=== PATIENT | female | born 1970 | race Caucasian/White ===

== ENCOUNTER 2021-03-18 13:43 | Outpatient (REF) | payer OTHER, SELFPAY ==
--- NOTE | ~2021-03-18 | XR_ITS ---
EXAMINATION: XR LUMBOSACRAL SPINE CLINICAL INFORMATION: Back pain COMPARISON: None TECHNIQUE: Three views of the lumbosacral spine. FINDINGS: Bone alignment is normal. No fracture or dislocation is seen. There is mild degenerative disc disease at L5-S1. There is lower lumbar spine facet arthritis. Paraspinal soft tissues are unremarkable. XR/XR lumbar spine 2-3V IMPRESSION: Degenerative disc disease at L5-S1 and lower lumbar spine facet arthritis.
== END 2021-03-18 13:44 | disposition home or self-care (01) ==
LOC: HO.XRAY 13:43
PROVIDERS: PCP Internal Medicine; Visit Provider Internal Medicine
DX: M54.9 Dorsalgia, unspecified (principal)
CPT/HCPCS: 72100

== ENCOUNTER 2021-03-27 10:03 | Emergency (ER) | payer OTHER, SELFPAY ==
[2021-03-27 10:12] VITALS: BP 138/92; PULSE 92; RESP 18; TEMP 36.9; O2SAT 98; BMI 26.6
--- NOTE | 2021-03-27 10:37 | ED_ITS ---
HPI - General Adult General Chief complaint: Back Pain/Injury <JAZZMINE Ellis - Last Filed: 03/27/21 17:14> Stated complaint: low back pain <JAZZMINE Ellis - Last Filed: 03/27/21 17:14> Time Seen by Provider: 03/27/21 10:14 <JAZZMINE Ellis - Last Filed: 03/27/21 17:14> Source: patient <JAZZMINE Ellis - Last Filed: 03/27/21 17:14> Mode of arrival: ambulatory <JAZZMINE Ellis - Last Filed: 03/27/21 17:14> Limitations: no limitations <JAZZMINE Ellis Last Filed: 03/27/21 17:14> History of Present Illness HPI narrative: 50-year-old female presents to the ED for low back pain for the past 2 weeks days. Patient states after 2 hour long dry she had pain in the lower back area that is worse on movement. Patient says she was seen by primary care provider who discharged with steroids and muscle relaxer but no pain medication. Since she had x-ray and she called the office yesterday and they form her x-ray showed arthritis and lower spine. Patient denies any recent trauma, urinary/bowel incontinence, fever, chills, nausea, flank pain, dysuria, hematuria, or vomiting. Patient denies any history of HIV, hepatitis-C, other immunocompromised diseases or IV drug use. <JAZZMINE Ellis - Last Filed: 03/27/21 17:14> Related Data Home medications: Previous Rx's Medication Instructions Recorded gabapentin 100 mg capsule 100 mg PO TID 7 Days #21 cap 03/27/21 ketorolac 10 mg tablet 10 mg PO QID PRN 5 Days #20 tab 03/27/21 lidocaine 4 % topical patch 1 patch TOPICAL DAILY PRN #10 ea 03/27/21 tramadol 50 mg tablet 50 mg PO Q8H PRN #9 tab 03/27/21 <JAZZMINE Ellis - Last Filed: 03/27/21 17:14> Allergies/adverse reactions: Allergies Allergy/AdvReac Type Severity Reaction Status Date / Time penicillin V Allergy Unknown Unverified 12/07/17 00:00 Penicillins [PCN] Allergy Unknown ANAPHYLAXIS Unverified 01/19/20 16:12 Sulfa (Sulfonamide Allergy Unknown ANAPHYLAXIS Unverified 01/19/20 16:12 Antibiotics) [SULFA (SULFONAMIDE ANTIBIOTICS)] <JAZZMINE Ellis Last Filed: 03/27/21 17:14> Review of Systems Review of Systems: Yes all other systems are reviewed and are negative <JAZZMINE Ellis Last Filed: 03/27/21 17:14> Constitutional: Constitutional: Reports as per HPI and Reports no additional constitutional complaints <JAZZMINE Ellis Last Filed: 03/27/21 17:14> Eyes: Eyes: Reports as per HPI and Reports no additional eye complaints <JAZZMINE Ellis Last Filed: 03/27/21 17:14> ENT: Reports system reviewed and no additional complaints, except as documented and Reports as per HPI <JAZZMINE Ellis Last Filed: 03/27/21 17:14> Cardiovascular: Cardiovascular: Reports as per HPI and Reports no additional cardiovascular complaints <JAZZMINE Ellis Last Filed: 03/27/21 17:14> Respiratory: Respiratory: Reports as per HPI and Reports no additional respiratory complaints <JAZZMINE Ellis Last Filed: 03/27/21 17:14> Gastrointestinal: Gastrointestinal: Reports as per HPI and Reports no additional gastrointestinal complaints <JAZZMINE Ellis Last Filed: 03/27/21 17:14> Genitourinary: Genitourinary: Reports no additional female genitourinary complaints and Reports as per HPI <JAZZMINE Ellis Last Filed: 03/27/21 17:14> Musculoskeletal: Musculoskeletal: Reports no additional musculoskeletal complaints, Reports as per HPI and Reports back pain <JAZZMINE Ellis Last Filed: 03/27/21 17:14> Neurologic: Reports system reviewed and no additional complaints, except as documented and Reports as per HPI <JAZZMINE Ellis Last Filed: 03/27/21 17:14> Psychiatric: Psychiatric: Reports no additional psychiatric complaints and Reports as per HPI <JAZZMINE Ellis Last Filed: 03/27/21 17:14> Endocrine: Endocrine: Reports no additional endocrine complaints and Reports as per HPI <JAZZMINE Ellis Last Filed: 03/27/21 17:14> PMFSH Past Medical History Medical History: Medical History (Updated 03/27/21 @ 12:29 by JAZZMINE Ellis) No known health problems <JAZZMINE Ellis - Last Filed: 03/27/21 17:14> Social History Social History: Social History Advance Directives: No Patient : No <JAZZMINE Ellis - Last Filed: 03/27/21 17:14> Physical Exam Vital Signs: Vital Signs: Last Vital Signs Temp 98.4 F 03/27/21 10:12 Pulse 92 03/27/21 10:12 Resp 18 03/27/21 10:12 BP 138/92 H 03/27/21 10:12 Pulse Ox 98 03/27/21 10:12 Body Mass Index 26.6 <JAZZMINE Ellis - Last Filed: 03/27/21 17:14> Vital Signs: Last Vital Signs Temp 98.4 F 03/27/21 10:12 Pulse 92 03/27/21 10:12 Resp 18 03/27/21 10:12 BP 138/92 H 03/27/21 10:12 Pulse Ox 98 03/27/21 10:12 Body Mass Index 26.6 <Rashawn Yadav MD - Last Filed: 03/27/21 12:08> Const: General: cooperative, healthy appearing, well developed, alert, awake and acute distress (back pain) <JAZZMINE Ellis - Last Filed: 03/27/21 17:14> Orientation/consciousness: patient oriented x3 <JAZZMINE Ellis - Last Filed: 03/27/21 17:14> HENMT: Head: Yes normal to inspection and Yes No palpable skull fracture present <JAZZMINE Ellis - Last Filed: 03/27/21 17:14> Ears: hearing grossly normal bilaterally <JAZZMINE Ellis - Last Filed: 03/27/21 17:14> Eyes: General: appearance normal, both eyes and all related structures <JAZZMINE Ellis - Last Filed: 03/27/21 17:14> Neck: Neck: Yes normal visual inspection, Yes full ROM, Yes no lymphadenopathy, Yes no meningeal signs, Yes trachea midline, Yes supple, No anterior neck swelling and No tender <JAZZMINE Ellis - Last Filed: 03/27/21 17:14> Chest: Chest palpation & inspection: normal inspection of the chest and normal palpation of entire chest wall <Shaka Barrera, PA Last Filed: 03/27/21 17:14> Resp: Effort & Inspection: normal respiratory effort and able to speak in complete sentences <Shaka Barrera, PA Last Filed: 03/27/21 17:14> Auscultation: clear to auscultation bilaterally <JAZZMINE Ellis Last Filed: 03/27/21 17:14> Cardio: Jugular venous distension: no JVD <JAZZMINE Ellis Last Filed: 03/27/21 17:14> Heart sounds: S1 normal heart sound present and S2 normal heart sound present <JAZZMINE Ellis Last Filed: 03/27/21 17:14> GI: Inspection: Yes normal to inspection and No abdominal wall ecchymosis <JAZZMINE Ellis Last Filed: 03/27/21 17:14> Palpation (GI): Soft to palpation, not firm, nontender, no guarding and not rigid <Shaka Rust [facility] Last Filed: 03/27/21 17:14> : General: No CVA tenderness and Yes no CVA tenderness <Shaka Barrera, PA Last Filed: 03/27/21 17:14> Back/Spine/Pelvis: Back: no CVA tenderness, No CVA tenderness and back tenderness (Sacral coccyx/lumbar) <Shaka Barrera, PA Last Filed: 03/27/21 17:14> Skin: General skin exam: no rashes or lesions noted and elasticity normal <Shaka Barrera, PA Last Filed: 03/27/21 17:14> Neuro: General: patient oriented x3, gait normal, no meningeal signs and CN's II-XI intact bilaterally <Shaka Barrera, PA Last Filed: 03/27/21 17:14> Cranial nerves: Yes CN's II-XII intact bilaterally <JAZZMINE Ellis Last Filed: 03/27/21 17:14> Extrem: General: Yes normal to inspection and Yes full ROM <JAZZMINE Ellis Last Filed: 03/27/21 17:14> Psych: Appearance: grossly normal, well kempt and not disheveled <JAZZMINE Ellis - Last Filed: 03/27/21 17:14> Course Course Course Narrative: Patient had x-ray last week and shows arthritis. No need for repeat x-ray patient denies any trauma. Not suspecting cord compression or epidural abscess. Patient denies any history of IV drug use, hepatitis, HIV, or any urinary/bowel incontinence. <JAZZMINE Ellis - Last Filed: 03/27/21 17:14> Reevaluation(s) Reevaluation #1: discussed with JAZZMINE Rust and agree with plan, can add gabapentin if necessary <Rashawn Ydaav MD - Last Filed: 03/27/21 12:08> Time: 12:08 <Rashawn Yadav MD - Last Filed: 03/27/21 12:08> Reevaluation #2: Will discharge with gabapentin, Toradol, and tramadol. Patient finishing Flexeril and steroids prescription prescribed by her PCP. Presently no indication for MRI. Patient able to walk on her own. Inspection negative for any pilondal abscess or ecchymosis. Patient states her back pain improved with meds. Patient informed to follow-up with primary care provider for MRI if pain does not improve. <JAZZMINE Ellis - Last Filed: 03/27/21 17:14> Time: 16:26 <JAZZMINE Ellis - Last Filed: 03/27/21 17:14> Medical Decision Making MDM Narrative Medical decision making narrative: Lumbar radiculopathy <JAZZMINE Ellis - Last Filed: 03/27/21 17:14> Discharge Plan Discharge Clinical Impression: Lumbar radiculopathy <JAZZMINE Ellis - Last Filed: 03/27/21 17:14> Patient Disposition: Home, Self-Care <JAZZMINE Ellis - Last Filed: 03/27/21 17:14> Instructions: Lumbar Radiculopathy (ED) <JAZZMINE Ellis - Last Filed: 03/27/21 17:14> Additional Instructions: Return to the ED immediately for any urinary/bowel incontinence, dysuria, hematuria, flank pain, fever, chills, nausea, vomiting, paralysis of lower extremity, severe numbness of lower extremity, abdominal pain, vaginal bleeding, or any other concerning symptoms. If symptoms are not improved he will need MRI by PCP.. <JAZZMINE Ellis - Last Filed: 03/27/21 17:14> Prescriptions: New tramadol 50 mg tablet 50 mg PO Q8H PRN (Reason: pain) Qty: 9 RF: 0 gabapentin 100 mg capsule 100 mg PO TID 7 Days Qty: 21 RF: 0 lidocaine 4 % adhesive patch,medicated 1 patch topical DAILY PRN (Reason: pain) Qty: 10 RF: 0 ketorolac 10 mg tablet 10 mg PO QID PRN (Reason: pain) 5 Days Qty: 20 RF: 0 <JAZZMINE Ellis - Last Filed: 03/27/21 17:14> Stand Alone Forms: Work/School Release <JAZZMINE Ellis - Last Filed: 03/27/21 17:14> Interventions: ED Discharge Assessment Last Done: 03/27/21 13:29 <JAZZMINE Ellis - Last Filed: 03/27/21 17:14> Discharge Date/Time: 03/27/21 13:34 <JAZZMINE Ellis - Last Filed: 03/27/21 17:14> Print Language: [place] <JAZZMINE Ellis - Last Filed: 03/27/21 17:14>
[2021-03-27] MEDS: oxyCODONE HCl Immed Release 5 MG TABLET PO (10:49)
[2021-03-27] MEDS: Ondansetron ODT 4 MG TAB.RAPDIS TRANSLINGU (10:49)
[2021-03-27] MEDS: Ketorolac Tromethamine 60 MG/2 ML VIAL IM (10:51)
[2021-03-27] MEDS: diazePAM 5 MG TABLET PO (12:36)
== END 2021-03-27 13:34 | disposition home or self-care (01) ==
PROVIDERS: Emergency Provider Emergency Medicine; PCP Internal Medicine
DX: M54.16 Radiculopathy, lumbar region (principal); Z79.899 Other long term (current) drug therapy
CPT/HCPCS: 96372; 99284; J1885

== ENCOUNTER 2021-11-10 15:37 | Emergency (ER) | payer OTHER, SELFPAY ==
[2021-11-10 15:38] VITALS: BMI 26.9
[2021-11-10 15:44] VITALS: BP 156/87; PULSE 76; RESP 16; TEMP 36.8; O2SAT 98
--- NOTE | 2021-11-10 16:21 | ED.EAR ---
HPI - Ear Problem General Chief complaint: Ear Problems Stated complaint: Bilateral Ear Pain Time Seen by Provider: 11/10/21 16:12 Source: patient Mode of arrival: ambulatory Limitations: no limitations History of Present Illness HPI Narrative: 50-year-old female who has a past medical history of recurrent otitis externa infections requiring Cipro dex drops, p.o. Cipro and ear palomo last had an infection 6 months ago presenting to the ED with complaints of worsening right-sided ear pain reporting that she believes she might need a ear wick and worsening left-sided ear pain although she does not believe she needs a ear wick to that side. She reports that she is taking the Ciprodex drops and is not providing no symptomatic relief and normally she needs Cipro p.o. in an ear wick that is why she is here today. She denies any recent swimming, ear drainage, fevers, trouble swallowing or breathing, cough, nasal congestion/rhinorrhea, rashes, recent falls or trauma or any other symptoms complaints or concerns at this time. MD Complaint: ear pain Location: bilateral Duration: constant Severity: moderate Relieving factors: nothing Exacerbating factors: palpation Discharge from ear: no Associated symptoms ear: external ear tenderness and ear swelling Treatment prior to arrival: eardrops Related Data Previous Rx's Medication Instructions Recorded gabapentin 100 mg capsule 100 mg PO TID 7 days #21 caps 03/27/21 ketorolac 10 mg tablet 10 mg PO QID PRN pain 5 days #20 03/27/21 tabs lidocaine 4 % topical patch 1 patch topical DAILY PRN pain #10 03/27/21 ea tramadol 50 mg tablet 50 mg PO Q8H PRN pain #9 tabs 03/27/21 ciprofloxacin 0.3 %-dexamethasone 4 drp otic (ears) BID Otitis 11/10/21 0.1 % ear drops,suspension externa 7 days #7.5 mL (Ciprodex) ciprofloxacin HCl 500 mg tablet 500 mg PO BID Otitis externa 14 11/10/21 (Cipro) days #28 tabs Allergies Allergy/AdvReac Type Severity Reaction Status Date / Time penicillin V Allergy Unknown Unverified 12/07/17 00:00 Penicillins [PCN] Allergy Unknown ANAPHYLAXIS Unverified 01/19/20 16:12 Sulfa (Sulfonamide Allergy Unknown ANAPHYLAXIS Unverified 09/17/20 16:12 Antibiotics) [SULFA (SULFONAMIDE ANTIBIOTICS)] Review of Systems Review of Systems: Constitutional : No Weight loss, No Fever, No Chills, No Night Sweats, No Fatigue, No Malaise ENT/Mouth : + bilateral ear pain, No Hearing loss, No Nasal Congestion, No Sinus Pain, No Hoarseness, No sore throat, No Rhinorrhea, No Swallowing Difficulty Eyes: No Eye Pain, No Swelling, No Redness, No Foreign Body, No Discharge, No Vision Changes Cardiovascular : No Chest Pain, No SOB, No Dyspnea on Exertion, No Orthopnea, No Edema, No Palpitations Respiratory : No Cough, No Sputum, No Wheezing, No Smoke Exposure, No Dyspnea Gastrointestinal : No Nausea, No Vomiting, No Diarrhea, No Constipation, No abdominal Pain, No Hematochezia, No Melena Genitourinary : no irregular bleeding, No Dysuria, No Urinary Frequency, No Hematuria, No Urinary Incontinence, No Urgency, No Flank Pain, No Urinary Flow Changes, No Hesitancy Musculoskeletal : No joint pain, No Myalgias, No Joint Swelling Skin : No Skin Lesions, No rash Neuro : No Weakness, No Numbness, No Paresthesias, No Loss of Consciousness, No Dizziness, No Headache Psych : No Anxiety/Panic, No Depression, No SI/HI/AH/VH, No Social Issues, Heme/Lymph: No Bruising, No Bleeding,No Lymphadenopathy Endocrine : No Polyuria, No Polydipsia, No Temperature Intolerance Yes all other systems are reviewed and are negative [facility] Past Medical History Attestation statement: The following information was validated with the patient. Source: old records reviewed and nursing notes reviewed Medical History No known health problems Social History Social History Advance Directives: No Advance Directives Information Provided: No Physical Exam Vital Signs: Vital Signs: Last Vital Signs Temp 98.2 F 11/10/21 15:44 Pulse 76 11/10/21 15:44 Resp 16 11/10/21 15:44 BP 156/87 H 11/10/21 15:44 Pulse Ox 98 11/10/21 15:44 O2 Del Method 11/10/21 15:44 BMI result Body Mass Index 26.9 vital signs have been reviewed as normal and appeared to be correct. Blood pressure 156/87. Heart rate normal. Respiration rate normal. Temperature normal. Oxygen saturation normal. Appearance: Alert. Oriented X3. No acute distress. Head: Normal external exam. Normocephalic. Atraumatic. Eyes: PERRLA. EOMI. Conjunctiva and sclera normal. Eyelids normal. ENT: Left-sided external ear canal with palpation of the pinna and tragus patient has tenderness and mild edematous to the external ear canal no drainage noted. Tympanic membrane is intact no erythema to tympanic membrane. Right-sided external ear canal completely close unable to visualize the tympanic membrane. Therefore ear wick placed. Patient tolerated procedure well. No complications. No purulent drainage from bilateral ears. Pharynx normal. Uvula midline. Moist mucous membranes. No lesions/ulcerations or masses noted on the tongue. Normal voice. No trismus noted. No drooling noted. No muffled voice noted. Neck: Normal inspection. Neck supple. FROM. No adenopathy. No meningeal signs. No neck mass noted. CVS: Normal heart rate and rhythm. Heart sound normal. Pulses normal throughout. No murmurs/rales/gallops. Respiratory: No respiratory distress. Painless inspiration. Breath sounds normal. No wheezes/rales/rhonchi noted. Chest nontender. No accessory muscle usage noted or decreased air movement noted. Back: Full range of motion noted. Skin: Skin warm and dry. Normal skin color. Normal skin turgor. No rashes/lesions/lacerations noted. Extremities: Extremities exhibit normal range of motion and nontender. Neuro: Oriented X 3. No motor deficit. No sensory deficit. Reflexes normal. Normal steady gait. No focal neuro deficits noted. CN's II-XII intact bilaterally? Vascular: + radial pulses/+ 2 distal pedal pulses/+2 dorsalis pedis b/l. Normal cap refill. No cyanosis noted to upper extremity nails and lower extremity toes nails. Course Course Course Narrative: Patient with bilateral otitis externa worse on the right requiring ear wick. Patient tolerated procedure well. No complications. Tympanic membrane to the left side is intact not perforated. Not consistent with mastoiditis. No tenderness over the mastoid. No meningeal signs noted. Therefore at this time will DC home with Ciprodex drops and Cipro p.o. as patient reports this is what usually works for her and instructions to follow-up with her PCP/ear nose and throat doctor. Patient understands agrees with this plan. MDM - Ear Medical Records Attestation: I reviewed the patient's medical records. Discharge Plan Discharge Clinical Impression: Otitis externa Patient Disposition: Home, Self-Care Instructions: Otitis Externa (ED) Prescriptions: New ciprofloxacin-dexamethasone [Ciprodex] 0.3-0.1 % drops,suspension 4 drp otic (ears) BID 7 Days Qty: 7.5 0RF ciprofloxacin HCl [Cipro] 500 mg tablet 500 mg PO BID 14 Days Qty: 28 0RF No Action tramadol 50 mg tablet 50 mg PO Q8H PRN (Reason: pain) Qty: 9 0RF gabapentin 100 mg capsule 100 mg PO TID 7 Days Qty: 21 0RF lidocaine 4 % adhesive patch,medicated 1 patch topical DAILY PRN (Reason: pain) Qty: 10 0RF ketorolac 10 mg tablet 10 mg PO QID PRN (Reason: pain) 5 Days Qty: 20 0RF Rx Instructions: Patient received 60mg Toradol IM in the ED. Referrals: Aleah Crane MD [Primary Care Provider] - 2 days
== END 2021-11-10 16:34 | disposition home or self-care (01) ==
PROVIDERS: Emergency Provider Emergency Medicine; PCP Internal Medicine
DX: H60.93 Unspecified otitis externa, bilateral (principal)
CPT/HCPCS: 99283

== ENCOUNTER 2023-06-03 17:35 | Emergency (ER) | payer OTHER, SELFPAY ==
--- NOTE | ~2023-06-03 | CT_ITS ---
EXAMINATION: CT HEAD WITHOUT CONTRAST CLINICAL INFORMATION: Headache x1 month. COMPARISON: No relevant prior imaging. TECHNIQUE: Contiguous axial imaging was performed from the skull base to vertex without intravenous administration of contrast. This CT examination was performed using dose optimization techniques as appropriate, variously including the following: *Automated exposure control *Adjustment of mA and/or kV according to patient size (this includes techniques or standardized protocols for targeted exams where dose is matched to indication/reason for exam; i.e. extremities or head) *Use of iterative reconstruction technique DLP: 590 mGy-cm FINDINGS: There is no acute intracranial hemorrhage or abnormal extra-axial collection. No intracranial mass effect or midline shift. Lateral and third ventricles are normal. No hydrocephalus. Rojas-white matter differentiation is preserved and there is no evidence of acute territorial infarct. The calvarium and skull base are intact. Mastoid air cells and middle ear cavities are well aerated. No active paranasal sinus disease. CT/CT head/brain wo IV con IMPRESSION: Normal CT scan of the head.
[2023-06-03 18:27] VITALS: BP 170/84; PULSE 80; RESP 16; TEMP 36.3; O2SAT 98; BMI 26.6
--- NOTE | 2023-06-03 18:31 | ECG_ITS ---
Test Reason : PALPITATIONS Blood Pressure : / mmHG Vent. Rate : 063 BPM Atrial Rate : 063 BPM P-R Int : 178 ms QRS Dur : 076 ms QT Int : 402 ms P-R-T Axes : 036 -08 030 degrees QTc Int : 411 ms Normal sinus rhythm Cannot rule out Anteroseptal infarct (cited on or before 02-JUL-2016) Abnormal ECG When compared with ECG of 02-JUL-2016 15:35, No significant change was found Referred By: Shaka Rust Electronically Signed By:STORM MCCRAY MD
--- NOTE | 2023-06-03 18:34 | ED_ITS ---
HPI - General Adult General Chief complaint: Arrhythmia/Palpitations Stated complaint: migraine, bp problem, hx of heart problem History of Present Illness HPI narrative: LEft without completiont of treatment Related Data Previous Rx's Medication Instructions Recorded gabapentin 100 mg capsule 100 mg PO TID 7 days #21 caps 03/27/21 ketorolac 10 mg tablet 10 mg PO QID PRN pain 5 days #20 03/27/21 tabs lidocaine 4 % topical patch 1 patch topical DAILY PRN pain #10 03/27/21 ea tramadol 50 mg tablet 50 mg PO Q8H PRN pain #9 tabs 03/27/21 ciprofloxacin 0.3 %-dexamethasone 4 drp otic (ears) BID Otitis 11/10/21 0.1 % ear drops,suspension externa 7 days #7.5 mL (Ciprodex) ciprofloxacin HCl 500 mg tablet 500 mg PO BID Otitis externa 14 11/10/21 (Cipro) days #28 tabs Allergies Allergy/AdvReac Type Severity Reaction Status Date / Time penicillin V Allergy Unknown Anaphylaxis Verified 06/03/23 20:50 Penicillins [PCN] Allergy Unknown ANAPHYLAXIS Verified 06/03/23 20:50 Sulfa (Sulfonamide Allergy Unknown ANAPHYLAXIS Verified 06/03/23 20:50 Antibiotics) [SULFA (SULFONAMIDE ANTIBIOTICS)] [facility] Past Medical History Medical History No known health problems Social History Social History Advance Directives: No Advance Directives Information Provided: No Physical Exam ED Vital Signs: Vital Signs - 24 hr 06/03/23 18:27 06/03/23 20:56 Temperature 97.4 F 97.5 F Pulse Rate 80 58 Respiratory Rate 16 16 Blood Pressure 170/84 H 140/93 H Pulse Oximetry 98 99 Oxygen Delivery Method Room Air Room Air BMI result Body Mass Index 26.6 Course Course Course Narrative: RME: 52 neyda casarez presents to the ED for one month of heart palpitations and migraine for one moth. Patietn states no shortness of breath or stroke symptoms. labs and EKG ordered. head CT scan ordered Medications Administered Discontinued Medications Generic Name Dose Route Start Last Admin Trade Name Freq PRN Reason Stop Dose Admin Ibuprofen 800 mg 06/03/23 20:47 06/03/23 20:54 Ibuprofen 800 Mg Tablet PO 06/03/23 20:48 800 mg ONCE ONE Administration Metoclopramide HCl 10 mg 06/03/23 20:50 06/03/23 20:54 Metoclopramide Hcl 10 Mg Tablet PO 06/03/23 20:51 10 mg ONCE ONE Administration Medical Decision Making Lab Data 06/03/23 18:55 06/03/23 18:55 Labs: Lab Results 06/03/23 06/03/23 Range/Units 18:55 22:10 WBC 8.1 (4.8-10.8) X10*3/uL RBC 4.96 (4.20-5.50) X10*6/uL Hgb 14.8 (12.0-16.0) g/dl Hct 41.4 (37.0-47.0) % MCV 83.5 (80.0-98.0) fL MCH 29.8 (27.0-33.0) pg MCHC 35.7 H (31.0-35.0) g/dl RDW 11.9 (11.0-16.0) % Plt Count 221 (160-400) X10*3/uL MPV 9.7 (9.4-12.3) fL Immature Gran % (Auto) 0.4 (0.0-0.4) % Neut % (Auto) 74.1 H (45-73) % Lymph % (Auto) 16.5 L (20-40) % [place] % (Auto) 7.3 (2-11) % Eos % (Auto) 1.1 (0-4) % Baso % (Auto) 0.6 (0-2) % Lymph # (Auto) 1.3 (1.2-4.9) X10*3/uL [place] # (Auto) 0.6 (0.1-1.2) X10*3/uL Eos # (Auto) 0.1 (0.0-0.4) X10*3/uL Baso # (Auto) 0.1 (0.0-0.2) X10*3/uL Abs Immat Gran (auto) 0.03 (0.00-0.03) X10*3/uL Absolute Neuts (auto) 6.0 (2.0-8.3) x10*3/uL Absolute Nucleated RBC 0.000 (0.0-0.012) X10*3/uL Nucleated RBC % (auto) 0.0 (0.0-0.2) /100WBC PT 11.1 (11.1-13.3) SEC INR 0.9 (0.9-1.1) APTT 32.8 (26.0-36.8) SEC Sodium 140 (135-145) mmol/L Potassium 3.2 L (3.3-5.1) mmol/L Chloride 104 (96-108) mmol/L Carbon Dioxide 29 (22-29) mmol/L Anion Gap 10 L (12-20) BUN 10 (9-16) mg/dL Creatinine 0.77 (0.5-1.4) mg/dL Estim Creat Clear Calc 91.5 Estimated GFR > 60 Random Glucose 84 (60-115) mg/dL Calcium 10.0 (8.4-10.2) mg/dL Total Bilirubin 0.4 (0.0-1.0) mg/dL AST 22 (5-31) U/L ALT 29 (0-31) U/L Alkaline Phosphatase 71 (39-117) U/L Troponin I High Sens < 2.7 < 2.7 (<3.5-17.0) ng/L Total Protein 7.3 (6.5-8.0) g/dL Albumin 4.7 (3.5-5.0) g/dL TSH 1.56 (0.32-4.0) uIU/mL Discharge Plan Discharge Clinical Impression: Palpitations, Migraine Patient Disposition: Left W/O Completing Treatment Prescriptions: No Action tramadol 50 mg tablet 50 mg PO Q8H PRN (Reason: pain) Qty: 9 0RF gabapentin 100 mg capsule 100 mg PO TID 7 Days Qty: 21 0RF lidocaine 4 % adhesive patch,medicated 1 patch topical DAILY PRN (Reason: pain) Qty: 10 0RF ketorolac 10 mg tablet 10 mg PO QID PRN (Reason: pain) 5 Days Qty: 20 0RF Rx Instructions: Patient received 60mg Toradol IM in the ED. ciprofloxacin-dexamethasone [Ciprodex] 0.3-0.1 % drops,suspension 4 drp otic (ears) BID 7 Days Qty: 7.5 0RF ciprofloxacin HCl [Cipro] 500 mg tablet 500 mg PO BID 14 Days Qty: 28 0RF Discharge Date/Time: 06/04/23 00:02
[2023-06-03 19:01] LABS: MANUAL DIFF FLAG NO
[2023-06-03 19:02] LABS: Basophils Absolute Auto 0.1 X10*3/uL (0.0-0.2); Basophils Percent Auto 0.6 % (0-2); Eosinophils Absolute Auto 0.1 X10*3/uL (0.0-0.4); Eosinophils Percent Auto 1.1 % (0-4); Hematocrit 41.4 % (37.0-47.0); Hemoglobin 14.8 g/dl (12.0-16.0); Imm Gran Abs Auto 0.03 X10*3/uL (0.00-0.03); Imm Gran Pct Auto 0.4 % (0.0-0.4); Lymphocytes Absolute Auto 1.3 X10*3/uL (1.2-4.9); Lymphocytes Percent Auto 16.5 % (20-40); Mean Corpuscular HGB Conc 35.7 g/dl (31.0-35.0); Mean Corpuscular Hemoglobin 29.8 pg (27.0-33.0); Mean Corpuscular Volume 83.5 fL (80.0-98.0); Mean Platelet Volume 9.7 fL (9.4-12.3); Monocytes Absolute Auto 0.6 X10*3/uL (0.1-1.2); Monocytes Percent Auto 7.3 % (2-11); Neutrophils Percent Auto 74.1 % (45-73); Platelet Count 221 X10*3/uL (160-400); Red Blood Count 4.96 X10*6/uL (4.20-5.50); Red Cell Distribution Width 11.9 % (11.0-16.0); White Blood Count 8.1 X10*3/uL (4.8-10.8)
[2023-06-03 19:09] LABS: INTERNATIONAL NORM RATIO 0.9 (0.9-1.1); Prothrombin Time 11.1 SEC (11.1-13.3)
[2023-06-03 19:12] LABS: Partial Thromboplastin Time 32.8 SEC (26.0-36.8)
[2023-06-03 19:15] LABS: Alanine Aminotransferase 29 U/L (0-31); Albumin Level 4.7 g/dL (3.5-5.0); Alkaline Phosphatase 71 U/L (39-117); Anion Gap 10 (12-20); Aspartate Amino Transferase 22 U/L (5-31); Bilirubin Total 0.4 mg/dL (0.0-1.0); Blood Urea Nitrogen 10 mg/dL (9-16); Carbon Dioxide 29 mmol/L (22-29); Chloride 104 mmol/L (96-108); Creatinine Clr Calc Pharmacy 91.5; Estimated Glomerular Filt Rate > 60; Glucose Random 84 mg/dL (60-115); Potassium 3.2 mmol/L (3.3-5.1); Sodium 140 mmol/L (135-145); Total Protein 7.3 g/dL (6.5-8.0)
[2023-06-03 19:23] LABS: Troponin-I High Sensitivity < 2.7 ng/L (<3.5-17.0)
[2023-06-03 19:36] LABS: TSH reflex Free T4 1.56 uIU/mL (0.32-4.0)
[2023-06-03] MEDS: Metoclopramide HCl 10 MG TABLET PO (20:54)
[2023-06-03] MEDS: Ibuprofen 800 MG TABLET PO (20:54)
[2023-06-03 20:56] VITALS: BP 140/93; PULSE 58; RESP 16; TEMP 36.4; O2SAT 99
[2023-06-03 22:36] LABS: Troponin-I High Sensitivity < 2.7 ng/L (<3.5-17.0)
== END 2023-06-04 00:02 | disposition left against medical advice (07) ==
PROVIDERS: Physician Assistant; Emergency Provider Emergency Medicine
DX: R00.2 Palpitations (principal); G43.909 Migraine, unspecified, not intractable, without status migrainosus; E87.6 Hypokalemia; R03.0 Elevated blood-pressure reading, without diagnosis of hypertension; Z79.899 Other long term (current) drug therapy
CPT/HCPCS: 36415; 70450; 80053; 84443; 84484; 85025; 85610; 85730; 93005; 99283; 99284

== ENCOUNTER → 2023-06-03 18:31 | Outpatient (BNV) | payer OTHER, SELFPAY | PROVIDERS: Emergency Provider Emergency Medicine; Visit Provider Internal Medicine Cardiovascular Disease | DX: R00.2 Palpitations (principal) | CPT/HCPCS: 93010 ==

== ENCOUNTER 2023-06-24 09:16 | Outpatient (AMB) | payer OTHER, SELFPAY ==
[2023-06-24 09:30] VITALS: BP 148/80; PULSE 62; BMI 27.5
--- NOTE | 2023-06-24 09:30 | MHC.OFFVIS ---
Intake Vital Signs 06/24/23 09:30 Height 5 ft 7 in Weight 175 lb 7.807 oz BMI 27.5 BP 148/80 H Blood Pressure Location Lt brachial Position Sitting Pulse 62 Intake Visit Reasons: NPV/HTN/ ED follow up/ HS pt 2017 Intake Note: NPV Manager Activities Required: No Accompanied by: Self / Same As Patient Allergies penicillin V Allergy (Unknown, Verified 06/24/23 09:32) Anaphylaxis Penicillins [PCN] Allergy (Unknown, Verified 06/24/23 09:32) ANAPHYLAXIS Sulfa (Sulfonamide Antibiotics) [SULFA (SULFONAMIDE ANTIBIOTICS)] Allergy (Unknown, Verified 06/24/23 09:32) ANAPHYLAXIS Medication List - Last Reconciled 06/24/23 by Esvin Burnett MD ciprofloxacin-dexamethasone 0.3-0.1 % (Ciprodex) 4 drps otic (ears) BID 7 days HPI HPI Comments History of Present Illness Details Sulema is here for consultation regarding palpitations. We had seen her around 2017 for PVCs. She states that she has been doing okay for many years till a few weeks back. She has been frequently noticing the palpitations and also some pulsations in the neck. Some sensations of chest squeezing as well. However not exertional. No documented coronary disease or any other major cardiac issues in the past. She states that she has had migraine since being very young. However, blood pressure is also on the higher side and hence not clear if the high blood pressure is causing the headaches rather. She does not take any blood pressure medications at this time. With regard to the migraine, she states that she has tried [id number] cannabinoids and that has helping a lot. The palpitations started well before the use of cannabinoids. [facility] Medical History (Updated 06/24/23 @ 09:46 by Esvin Burnett MD) No known health problems Family History (Updated 06/24/23 @ 09:34 by Puja Leonard) Mother No problems noted. Father No problems noted. Social History (Updated 06/24/23 @ 09:34 by Puja Leonard) Alcohol intake: never Patient Tobacco Use Status: Never used Tobacco Review of Systems Const Denies chills, Denies daytime sleepiness, Denies fatigue, Denies fever(s), Denies frequent falls, Denies night sweats, Denies snoring, Denies weakness, Denies weight gain and Denies weight loss Eyes Denies loss of vision ENT Denies dizziness and Denies hearing loss Card Denies chest pain, Denies chest pain with activity, Denies syncope, Denies rapid heart rate, Denies edema, Denies claudication, Denies leg edema, Denies lightheadedness, Denies dyspnea, Denies dyspnea on exertion and Denies orthopnea Resp Denies cough, Denies excessive phlegm production, Denies dyspnea, Denies dyspnea on exertion, Denies snoring and Denies wheezing GI Denies abdominal pain, Denies hematochezia, Denies change in bowel habits, Denies change in stool character, Denies heartburn, Denies nausea and Denies vomiting Denies hematuria, Denies urinary frequency and Denies dysuria Musc Denies arthralgias, Denies muscle weakness, Denies numbness and Denies tingling Skin/Breast Denies nail changes and Denies rash Neuro Denies Abnormal speech present, Denies dizziness, Denies syncope, Denies frequent falls, Denies loss of vision, Denies memory loss, Denies numbness, Denies tingling and Denies weakness Psych Denies depression and Denies memory loss Endo Denies fatigue Aller/Immun Denies wheezing Physical Exam Vital Signs: Last Vital Signs Pulse 62 06/24/23 09:30 BP 148/80 H 06/24/23 09:30 BMI result Body Mass Index 27.5 Const General: comfortable and no acute distress Orientation/consciousness: patient oriented x3 HEENT Other: Unremarkable Head: Yes normal to inspection Neck Neck: Yes normal visual inspection Chest Chest palpation & inspection: normal inspection of the chest Resp Auscultation: clear to auscultation bilaterally Cardio Palpation: normal PMI Heart sounds: S1 normal heart sound present, S2 normal heart sound present, no gallops, no murmurs and no rubs GI Palpation (GI): Soft to palpation Back/Spine/Pelvis Other: unremarkable Skin General skin exam: no rashes or lesions noted Neuro General: patient oriented x3 Speech: No Abnormal speech present Extrem General: Yes normal to inspection Psych Mental Status: mental status grossly normal Assessment & Plan Assessment & Plan (1) PVC (premature ventricular contraction): Code(s): I49.3 - Ventricular premature depolarization (2) Essential hypertension: Code(s): I10 - Essential (primary) hypertension Plan In the recent EKG underlying rhythm is sinus 63/Min; cannot exclude old anteroseptal infarct but more likely from body habitus; normal [place] and corrected QT. Based on workup from 2017, low burden PVCs with preserved LVEF. Due to her new symptoms, we will pursue workup for the same. Repeat echocardiogram for cardiac function assessment. Holter to assess the burden of PVCs and any other arrhythmias. Coronary CTA to assess for any significant CAD. Advised to do home blood pressure checks. Once we have baseline data from about testing, we can start on beta-blockers which should help blood pressure as well as PVCs. Plan discussed in great detail with patient and she understands and agrees. Orders: Orders CA echo transthoracic complete Today I10 - Essential (primary) hypertension, I49.3 - Ventricular premature depolarization ECG 3 day holter monitor Today I49.3 - Ventricular premature depolarization, R00.2 - Palpitations CT Cardiac Coronary Angio Today I25.10 - Atherosclerotic heart disease of [place] coronary artery without angina pectoris, I49.3 - Ventricular premature depolarization Basic Metabolic Panel Today I10 - Essential (primary) hypertension Coding Level of Care Code New Pt Level 4 (96633) Diagnoses PVC (premature ventricular contraction) I49.3 Essential hypertension I10
== END 2023-06-24 10:11 | disposition home or self-care (01) ==
PROVIDERS: PCP Nurse Practitioner Family; Visit Provider Internal Medicine
DX: I49.3 Ventricular premature depolarization (principal); I10 Essential (primary) hypertension
CPT/HCPCS: 99204

== ENCOUNTER → 2023-06-24 09:16 | Outpatient (BNVA) | payer OTHER, SELFPAY | PROVIDERS: PCP Nurse Practitioner Family; Visit Provider Internal Medicine ==

== ENCOUNTER → 2023-07-17 07:49 | Outpatient (REF) | payer OTHER, SELFPAY ==
--- NOTE | 2023-07-17 07:54 | HM_ITS ---
Conclusion: 1. Patient was monitored for total period of 2 days and 21 hours 2. Baseline was normal sinus rhythm with average heart rate of 71 beats per minute 3. Occasional PACs noted with total burden of 0.7% 4. No significant pauses noted 5. Patient marked the counter 1 time without any associated symptoms correlating with sinus rhythm MTDD
[2023-07-17 09:02] LABS: Anion Gap 11 (12-20); Blood Urea Nitrogen 14 mg/dL (9-16); Calcium 9.8 mg/dL (8.4-10.2); Carbon Dioxide 25 mmol/L (22-29); Chloride 107 mmol/L (96-108); Estimated Glomerular Filt Rate > 60; Glucose Random 101 mg/dL (60-115); Potassium 4.2 mmol/L (3.3-5.1); Sodium 139 mmol/L (135-145)
== END ==
LOC: HO.CARD 07:49
PROVIDERS: PCP Nurse Practitioner Family; Visit Provider Internal Medicine
DX: R00.2 Palpitations (principal); I49.3 Ventricular premature depolarization; I10 Essential (primary) hypertension
CPT/HCPCS: 36415; 80048; 93242

== ENCOUNTER → 2023-07-17 07:54 | Outpatient (BNV) | payer OTHER, SELFPAY | PROVIDERS: PCP Nurse Practitioner Family; Visit Provider Internal Medicine Cardiovascular Disease | DX: R00.2 Palpitations (principal) | CPT/HCPCS: 93244 ==

== ENCOUNTER → 2023-07-31 08:00 | Outpatient (REF) | payer OTHER, SELFPAY ==
--- NOTE | 2023-07-31 08:02 | CA_ITS ---
Transthoracic Echocardiogram Patient (Last, First, Middle): Sulema Arango, Gender: Female Date of : 1970 Age: 52 Procedure Date: 07/31/2023 Procedure Type: Transthoracic Echocardiogram Location: OP Height: 170.18 cm Weight: 77.11 kg BSA: 1.89 m2 Heart Rate: 60 bpm BP: 130 / 80 mmHg Mercury Cracking Tester: JOANN Referring MD: Esvin Burnett MD Symptoms: I49.3 - Ventricular premature depolarization Study Quality: Fair ECG Rhythm: Sinus Conclusions: - Normal left ventricular size and systolic function. The visually estimated ejection fraction is between 60-65%. Diastolic function is normal for age. Normal GLS -18.9%. - Normal right ventricular cavity size and systolic function. - There is mild dilatation of the sinuses of Valsalva measuring 3.50 cm. Findings Left Ventricle Normal left ventricular size and systolic function. The visually estimated ejection fraction is between 60-65%. Diastolic function is normal for age. Normal GLS -18.9%. Right Ventricle Normal right ventricular cavity size and systolic function. Atria The left atrium is normal in size. The right atrium is normal in size. Aortic Valve Normal aortic valve structure and function. There is no aortic valve stenosis. There is no aortic valve regurgitation. Mitral Valve The mitral valve appears normal. There is no mitral valve regurgitation. There is no mitral valve stenosis. Pulmonic Valve The pulmonic valve is likely normal. Tricuspid Valve Normal tricuspid valve structure. There is trace tricuspid valve regurgitation. Normal right atrial pressure. There is no evidence of pulmonary hypertension. Great Vessels There is mild dilatation of the sinuses of Valsalva measuring 3.50 cm. The visualized portions of the pulmonary artery and branches are normal. Venous The inferior vena cava is normal in size and collapses greater than 50% with inspiration. Pericardium/Pleural There is no evidence of pericardial effusion. Prior Study Comparison Changes noted compared to prior study dated: 07/17/2016. Mild dilation of aortic root 3.5 cm. Measurements 2D Linear Measurements IVSd: 0.74 0.6-0.9/0.6-1.0 cm LVIDd: 4.20 3.9-5.3/4.2-5.9 cm LVIDd Index: 2.22 2.4-3.2/2.2-3.1 cm/m2 LVIDs: 2.35 2.0-3.6 cm LVPWd: 0.96 0.7-1.1 cm LA Diam: 2.90 2.7-3.8/3.0-4.0 cm LAIDs Index: 1.53 1.5-2.3 cm/m2 LV Mass: 135.89 67-162/88-224 g LV Mass Index: 71.90 43-95/49-115 g/m2 LVOT Diam: 2.00 3.0+(-)1.3 cm 2D Systolic Function EF 4C: 63.10 >55% EF 2C: 61.00 >55% EF BiP: 62.10 >55% Mitral Valve MV Pk E: 0.72 MV PK A: 0.76 MV Decel Time: 242.00 E/A: 0.90 E'Lateral: 9.14 E'Medial: 7.18 E/E' Med: 10.00 E/E' Lat: 7.80 PHT: 71.00 MVA PHT: 3.10 Decel Vance: 2.95 Aortic Valve AoV Pk [place]: 1.37 AoV Mn [place]: 0.94 AoV VTI: 0.30 AoV Pk Grad: 8.00 Aov Mn Grad: 4.00 BENOIT Cont.VTI: 2.77 LVOT LVOT Pk [place]: 1.16 LVOT Mn [place]: 0.80 LVOT VTI: 0.27 LVOT Pk Grad: 5.00 LVOT Mn Grad: 3.00 LVOT Diam: 2.00 LVOT Area: 3.14 Diastolic Function MV Pk E: 0.72 MV Pk A: 0.76 E/A: 0.90 E'Medial: 7.18 E/E' Med: 10.00 E' Laterial: 9.14 E/E' Lat: 7.80 Right Ventricle TAPSE (mm): 21.70 TVS' [place]: 10.10 Tricuspid Valve TR Pk [place]: 2.01 TR Pk Grad: 16.00 RA Press: 3.00 RVSP: 19.00 Great Vessels Aorta Sinus of Valsalva: 3.50 2.0-3.5 cm Ao Asc: 3.10 2.1-3.4 cm Pulmonary Valve PV Pk Gordo: 0.83 Peak PV Grad: 3.00 Updated in Other Vendor System with Status of Final Quintin Solorio MD electronically signed on 08/02/2023 12:51:38 PM with status of Final
== END ==
LOC: HO.CARD 08:00
PROVIDERS: Visit Provider Internal Medicine
DX: I49.3 Ventricular premature depolarization (principal); I10 Essential (primary) hypertension
CPT/HCPCS: 93306; 93356

== ENCOUNTER → 2023-07-31 08:02 | Outpatient (BNV) | payer OTHER, SELFPAY | PROVIDERS: Visit Provider Internal Medicine Cardiovascular Disease | DX: I49.3 Ventricular premature depolarization (principal) | CPT/HCPCS: 93306; 93356 ==

== ENCOUNTER 2023-08-24 08:33 | Outpatient (AMB) | payer OTHER, SELFPAY ==
[2023-08-24 08:41] VITALS: BP 120/68; PULSE 71; O2SAT 98; BMI 27.6
--- NOTE | 2023-08-24 08:41 | MHC.OFFVIS ---
Vital Signs 08/24/23 08:41 Height 5 ft 7 in Weight 176 lb 5.917 oz BMI 27.6 BP 120/68 Blood Pressure Location Lt brachial Position Sitting Pulse 71 Pulse Source Pulse Oximeter Pulse Oximetry (%) 98 Oxygen Delivery Method Room Air Intake Visit Reasons: f/up CTA Allergies penicillin V Allergy (Unknown, Verified 06/24/23 09:32) Anaphylaxis Penicillins [PCN] Allergy (Unknown, Verified 06/24/23 09:32) ANAPHYLAXIS Sulfa (Sulfonamide Antibiotics) [SULFA (SULFONAMIDE ANTIBIOTICS)] Allergy (Unknown, Verified 06/24/23 09:32) ANAPHYLAXIS Medication List - Last Reconciled 08/24/23 by Esvin Burnett MD No Known Home Meds HPI Comments Details: Sulema returns for follow-up. Recently seen in consultation regarding palpitations. Around 2017, we saw her for PVCs. She was doing fine for a while till recently when she is again noticing palpitations, pulsations the neck extra. Some chest discomfort but nonexertional. Blood pressure also somewhat on the higher side recently. She has completed an echocardiogram, Holter and coronary CT. [facility] Medical History (Updated 08/24/23 @ 09:41 by Esvin Burnett MD) No known health problems Family History (Updated 06/24/23 @ 09:34 by Puja Leonard) Mother No problems noted. Father No problems noted. Social History (Updated 06/24/23 @ 09:34 by Puja Leonard) Alcohol intake: never Patient Tobacco Use Status: Never used Tobacco Review of Systems Const Denies weakness ENT Denies dizziness Card Denies chest pain, Denies chest pain with activity, Denies syncope, Denies rapid heart rate, Denies pedal edema, Denies edema, Denies leg edema, Denies lightheadedness, Denies palpitations, Denies dyspnea, Denies dyspnea on exertion and Denies orthopnea Resp Denies cough, Denies dyspnea and Denies dyspnea on exertion GI Denies hematochezia and Denies change in stool character Musc Denies abnormal gait, Denies muscle cramps, Denies muscle weakness, Denies numbness, Denies radiating pain into limb and Denies tingling Neuro Denies abnormal gait, Denies dizziness, Denies syncope, Denies numbness, Denies tingling and Denies weakness Endo Denies palpitations Physical Exam Vital Signs: Last Vital Signs Pulse 71 08/24/23 08:41 BP 120/68 08/24/23 08:41 Pulse Ox 98 08/24/23 08:41 Oxygen Delivery Method Room Air 08/24/23 08:41 BMI result Body Mass Index 27.6 Const General: comfortable and no acute distress Orientation/consciousness: patient oriented x3 HEENT Other: Unremarkable Head: Yes normal to inspection Neck Neck: Yes normal visual inspection Chest Chest palpation & inspection: normal inspection of the chest Resp Auscultation: clear to auscultation bilaterally Cardio Palpation: normal PMI Heart sounds: S1 normal heart sound present, S2 normal heart sound present, no gallops, no murmurs and no rubs GI Palpation (GI): Soft to palpation Back/Spine/Pelvis Other: unremarkable Skin General skin exam: no rashes or lesions noted Neuro General: patient oriented x3 Extrem General: Yes normal to inspection Psych Mental Status: mental status grossly normal Assessment & Plan Assessment & Plan (1) PVC (premature ventricular contraction): Code(s): I49.3 - Ventricular premature depolarization Category: Medical (2) PAC (premature atrial contraction): Code(s): I49.1 - Atrial premature depolarization Category: Medical (3) Essential hypertension: Code(s): I10 - Essential (primary) hypertension Category: Medical Plan Cardiac studies reviewed. EKG with underlying rhythm is sinus 63/Min; cannot exclude old anteroseptal infarct but more likely from body habitus; normal [place] and corrected QT. Echocardiogram with LVEF of 60-65%; normal peak global longitudinal strain; otherwise unremarkable. In the Holter, underlying rhythm is sinus with rare PACs/PVCs. Coronary CTA without any hemodynamically significant coronary disease. Calcium score is zero. Unremarkable thoracic aorta. Overall, rare PACs/PVCs which might be contributing to her palpitations. This was discussed in great detail today. Also reviewed the strips with her. Mainly reassurance. With regard to high blood pressure, tried amlodipine but she did not feel good after that and hence stopped. However, today's blood pressure seems normal. Advised to do some home readings and if still high, may try beta-blockers which should help both ectopy as well as blood pressure. Total time spent including review of data, counseling, documentation, coordination of care-31 minutes.
== END 2023-08-24 09:03 | disposition home or self-care (01) ==
PROVIDERS: PCP Nurse Practitioner Family; Visit Provider Internal Medicine
DX: I49.3 Ventricular premature depolarization (principal); I49.1 Atrial premature depolarization; I10 Essential (primary) hypertension
CPT/HCPCS: 99214

== ENCOUNTER → 2023-08-24 08:33 | Outpatient (BNVA) | payer OTHER, SELFPAY | PROVIDERS: PCP Nurse Practitioner Family; Visit Provider Internal Medicine ==

== ENCOUNTER 2023-10-02 08:32 | Outpatient (AMB) | payer OTHER, SELFPAY ==
--- NOTE | 2023-10-02 08:43 | MHC.PC.OV ---
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 Is supposed to be taking Amlodipine when blood pressure is elevated, but does not like side effects. 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 Required: No Allergies penicillin V Allergy (Unknown, Verified 10/02/23 09:05) Anaphylaxis Penicillins [PCN] Allergy (Unknown, Verified 10/02/23 09:05) ANAPHYLAXIS Sulfa (Sulfonamide Antibiotics) [SULFA (SULFONAMIDE ANTIBIOTICS)] Allergy (Unknown, Verified 10/02/23 09:05) ANAPHYLAXIS contrast dye Allergy (Intermediate, Uncoded 10/02/23 08:47) tremor nitro Allergy (Intermediate, Uncoded 10/02/23 08:47) tremors Medication List - Last Reconciled 10/02/23 by Monica Salcido, LILLIAN- estradiol 1 patch transdermal 2XW Tobacco use date assessed: 10/02/23 Dental Screening Dental Screen Date: 10/02/23 Did you have a dental visit in the last 12 months?: Yes Did you have a dental problem in the last 6 months where you did not have access to dental care?: No Was dental information given to patient?: Patient has dentist HPI HPI Comments History of Present Illness Details 52-year-old female with hypertension, PVCs and PACs, migraine, palpitations, menopause s/p MARIAM d/t fibroids 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 In the Holter, underlying rhythm is sinus with rare PACs/PVCs. Coronary CTA without any hemodynamically significant coronary disease. Calcium score is zero. Unremarkable thoracic aorta. DEXA Mammo reports standing order and UTD Colon cologaurd done in the past; PAP up-to-date Labs 07/17/2023 show normal CMP Here today to establish care norvasc - cannot function when taking, so is not taking. Last Cards notes indicated no need to cont. Could consider BB Migraines - was well controlled until recently when she started estrogen patch, rXd by SALES PROPERTY MANAGER. Looking for new SALES PROPERTY MANAGER provider. >> Referred to 7 sisters today Using cannabis tincture with + effect. Was ff'd by Neuro in the past but no longer. Hand Surgeon, Dr Chavez appt 10/15/23 R thumb growth and contracture; cyst like area left middle finger Reports her brother had 2 precancerous polyps. Has only done the Cologuard. Interested in referral for colonoscopy. Plan Refer to [facility] sisters for menopause care and advertising production manager care Refer to [facility] for screening colonoscopy Follow up with a hand surgeon to evaluate the growth on your right thumb as well as the cyst severe middle finger Consider use of propranolol for palpitations as well as migraine prevention Recommend against estrogen use with migraine with aura. Work with your manager lvn team on this. Return to the office in November for complete physical exam and to discuss palpitations and propranolol. Sooner as needed. [facility] Medical History (Updated 10/02/23 @ 10:41 by LILLIAN Carmen-) No known health problems Family History (Updated 06/24/23 @ 09:34 by Puja Leonard) Mother No problems noted. Father No problems noted. Social History (Updated 10/02/23 @ 08:59 by Jael Romero [facility]) Housing: House Alcohol intake: never Patient Tobacco Use Status: Never used Tobacco e-Cigarette/Vaping Use: Never Used Second Hand Smoke Exposure: Yes (past) Substance Use Type: Marijuana service: No Current occupational status: employed Current occupation: [employer] Current occupational exposures/hazards: No Cognitive needs: No Hearing needs: Yes (trouble hearing) Vision needs: No Questionnaire PHQ-9 Over the last 2 weeks, how often have you been bothered by any of the following problems? 1. Little interest or pleasure in doing things: not at all 2. Feeling down, depressed, or hopeless: not at all 3. Trouble falling or staying asleep, or sleeping too much: not at all 4. Feeling tired or having little energy: not at all 5. Poor appetite or overeating: not at all 6. Feeling bad about yourself - or that you are a failure or have let yourself or your family down: not at all 7. Trouble concentrating on things, such as reading the newspaper or watching television: not at all 8. Moving or speaking so slowly that other people could have noticed. Or the opposite - being so fidgety or restless that you have been moving around a lot more than usual: not at all 9. Thoughts that you would be better off or of hurting yourself in some way: not at all Total score: 0 Depression Screening Interpretation: Negative Depression Screening Done: Yes 73313 - PHQ-9 Billing: Yes Source: Developed by Drs. Hung Toth, Dea Licona, Gerber Espinosa and colleagues, with an educational robby from [employer]. Thrive Questionnaire Date Thrive assessed: 10/02/23 I am a: Patient What is your living situation today?: I have a steady place to live Within the past 12 months, did the food you bought not last and you didn't have the money to get more?: Never true Within the past 12 months, did you worry whether your food would run out before you got money to buy more?: Never true Do you have trouble paying for medicines?: No Do you have trouble getting transportation to medical appointments?: No Do you have trouble paying your heating and electricity bill?: No Do you have trouble taking care of your child, family member or friend?: No Do you have trouble with day-to-day activities such as bathing, preparing meals, shopping, managing finances, etc.?: No Are you currently unemployed and looking for a job?: No Are you interested in more education?: No Please select the resources that you would like help with: None Currently or been in a relationship where the following occur: no concerns reported THRIVE Score: 0 AUDIT C Alcohol Use Questionnaire (AUDIT-C) 1. How often do you have a drink containing alcohol?: Never 3. How often do you have six or more drinks on one occasion?: Never Total Score: 0 Score Reviewed/Action Taken: Yes GRIFFIN-7 AMB Questionnaire GRIFFIN-7 Date GRIFFIN - 7 assessed: 10/02/23 Feeling nervous, anxious, or on edge: 0 = Not at all Not being able to stop or control worryin = Not at all Worrying too much about different things: 0 = Not at all Trouble relaxin = More than half the days Being so restless that it is hard to sit still: 3 = Nearly every day Becoming easily annoyed or irritable: 0 = Not at all Feeling afraid as if something awful might happen: 0 = Not at all Total GRIFFIN-7 score (0-4 normal; 5-9 mild; 10-14 moderate; 15-21 severe): 5 Source: Developed by Drs. Hung Toth, Dea Licona, Gerber Espinosa and colleagues, with an educational robby from [employer]. GRIFFIN-7 Assessment Billing GRIFFIN-7 Assessment Tool: GRIFFIN-7 Assessment 99731 Review of Systems Const All systems reviewed & are unremarkable except as noted in HPI and below Physical exam (Primary Care) Vital Signs: Last Vital Signs Temp 98.1 F 10/02/23 08:52 Pulse 67 10/02/23 08:52 Resp 12 10/02/23 08:52 BP 128/76 10/02/23 08:52 Pulse Ox 95 10/02/23 08:52 Oxygen Delivery Method Room Air 10/02/23 08:52 BMI result Body Mass Index 28.5 BMI Assessment/Plan discussion: High BMI High, discussed plan: lifestyle Tobacco/Smoking Status: Tobacco use Status Tobacco use date assessed 10/02/23 10/02/23 08:59 Patient Tobacco Use Status Never used Tobacco 10/02/23 08:59 e-Cigarette/Vaping Use Never Used 10/02/23 08:59 Depression Screening Interpretation: Negative Thrive Assessment: Date of Thrive Assessment Date Thrive assessed 10/02/23 10/02/23 08:59 Currently or been in a relationship where the following occur: no concerns reported Const Other: Awake alert oriented PERRLA Regular rate and rhythm Lung sounds clear to auscultation bilat Mood is pleasant, thoughts are scattered and disorganized, tangential speech at times Assessment and Plan Assessment & Plan (1) Menopause: Comment: Refer to [facility] sisters for management. Code(s): Z78.0 - Asymptomatic menopausal state (2) Migraine with aura: Code(s): G43.109 - Migraine with aura, not intractable, without status migrainosus Qualifiers: Status migrainosus presence: without status migrainosus Intractability: not intractable Qualified Code(s): G43.109 - Migraine with aura, not intractable, without status migrainosus (3) PAC (premature atrial contraction): Code(s): I49.1 - Atrial premature depolarization (4) Essential hypertension: Code(s): I10 - Essential (primary) hypertension (5) PVC (premature ventricular contraction): Code(s): I49.3 - Ventricular premature depolarization (6) Screen for colon cancer: Code(s): Z12.11 - Encounter for screening for malignant neoplasm of colon Plan This note is constructed using voice recognition software. While every effort has been made to ensure accuracy in systems operator, still errors may have been included Sometimes, these errors may affect the content or meaning of the given sentence . Total time spent caring for the patient today was 60 minutes. This includes time spent before the visit reviewing the chart, time spent during the visit, and time spent after the visit on documentation Orders: Referrals DRAPERY EXAMINER Referral Z78.0 - Asymptomatic menopausal state Gastroenterology Referral Z12.11 - Encounter for screening for malignant neoplasm of colon Patient Instructions: Return to the office in November for complete physical exam. Plan Refer to [facility] for menopause care and advertising production manager care Refer to [facility] for screening colonoscopy Follow up with a hand surgeon to evaluate the growth on your right thumb as well as the cyst severe middle finger Consider use of propranolol for palpitations as well as migraine prevention Recommend against estrogen use with migraine with aura. Work with your manager lvn team on this. Return to the office in November for complete physical exam and to discuss palpitations and propranolol. Sooner as needed. Coding Level of Care Code New Pt Level 5 (37383) Diagnoses Menopause Z78.0 Migraine with aura and without status migrainosus, not intractable G43.109 Status migrainosus presence: without status migrainosus Intractability: not intractable PAC (premature atrial contraction) I49.1 Essential hypertension I10 PVC (premature ventricular contraction) I49.3 Screen for colon cancer Z12.11 Additional Codes GRIFFIN-7 Assessment Billing - GRIFFIN-7 Assessment Tool: GRIFFIN-7 Assessment [id number] ([id number])
[2023-10-02 08:52] VITALS: BP 128/76; PULSE 67; RESP 12; TEMP 36.7; O2SAT 95; BMI 28.5
== END 2023-10-02 09:32 | disposition home or self-care (01) ==
PROVIDERS: PCP Nurse Practitioner Family; Visit Provider Nurse Practitioner Family
DX: G43.109 Migraine with aura, not intractable, without status migrainosus (principal); I49.1 Atrial premature depolarization; Z78.0 Asymptomatic menopausal state; I10 Essential (primary) hypertension; I49.3 Ventricular premature depolarization; Z12.11 Encounter for screening for malignant neoplasm of colon
CPT/HCPCS: 99205

== ENCOUNTER 2023-11-06 07:57 | Outpatient (AMB) | payer BC, SELFPAY ==
--- NOTE | 2023-11-06 08:02 | A.OFFPC_ITS ---
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 Post menopausal: Yes Patient : No Allergies penicillin V Allergy (Unknown, Verified 11/06/23 08:05) Anaphylaxis Penicillins [PCN] Allergy (Unknown, Verified 11/06/23 08:05) ANAPHYLAXIS Sulfa (Sulfonamide Antibiotics) [SULFA (SULFONAMIDE ANTIBIOTICS)] Allergy (Unknown, Verified 11/06/23 08:05) ANAPHYLAXIS contrast dye Allergy (Intermediate, Uncoded 10/02/23 08:47) tremor nitro Allergy (Intermediate, Uncoded 10/02/23 08:47) tremors Medication List - Last Reconciled 11/06/23 by LILLIAN Carmen- Tobacco use date assessed: 10/02/23 Dental Screening Dental Screen Date: 10/02/23 HPI HPI Comments History of Present Illness Details 52-year-old female with hypertension, PV Cs and PACs, migraine, palpitations, menopause (2017) s/p MARIAM d/t fibroids Specialist Cardiology [facility] maintenance 08/2023: Echocardiogram with LVEF of 60-6 5%; normal peak global longitudinal strain; otherwise unremarkable.In the Holter, underlying rhythm is sinus with rare PACs/PVCs. Coronary CTA without any hemodynamically significant coronary disease. Calcium score is zero. Unremarkable thoracic aorta. DEXA has not had one, ordered today Mammo reports standing order and UTD however wants to est care @ [facility] [place] therefore order placed today. Colon cologaurd done in the past; referred @ last visit PAP up-to-date Tdap will do today Labs 07/17/2023 show normal CMP Here today for CPE Off estradial Headaches are much better now off of this Did have some hormonal sx for 4 days after but these are now resolved has appt w/ [facility] coming up Initial appt w/ GI 01/2024 Cards f/u 6 months Needs US of R thumb, has fu 12/10/2023 with surgeon for plan for removal Left hand cysts are resolved s/p in office treatment Eyes - wears contacts, UTD on eye exam done in the last year [facility] Medical History No known health problems Family History Mother No problems noted. Father No problems noted. Social History Housing: House Alcohol intake: never Patient Tobacco Use Status: Never used Tobacco e-Cigarette/Vaping Use: Never Used Second Hand Smoke Exposure: Yes (past) Substance Use Type: Marijuana service: No Current occupational status: employed Current occupation: [employer] Current occupational exposures/hazards: No Cognitive needs: No Hearing needs: Yes (trouble hearing) Vision needs: No Female Reproductive History Menstrual Date of last menstrual period: 11/05/17 control method: none Menopause type: surgical Date of menopause: 05/05/17 History of abnormal pap smear: No History of STI: No History of abnormal mammogram: Yes Questionnaire Thrive Questionnaire Date Thrive assessed: 10/02/23 GRIFFIN-7 AMB Questionnaire GRIFFIN-7 Date GRIFFIN - 7 assessed: 10/02/23 Source: Developed by Drs. Hung Toth, Dea Licona, Gerber Espinosa and colleagues, with an educational robby from [employer]. Review of Systems Const Details: Constitutional: Denies fever. Skin: Denies rash. Eye: Denies eye pain. ENMT: Denies sore throat and nasal congestion. Respiratory: Denies shortness of breath and cough. Gastrointestinal: Denies nausea, vomiting or abdominal pain. Complains of abdominal bloating and chronic loose stools. Cardiovascular: Denies chest pain and syncope. Genitourinary: Denies dysuria. Musculoskeletal: Denies back pain and extremity pain. Reports generalized aches and pains. Left hip pain hurts after sitting for prolonged periods. Neurologic: Denies headaches, confusion, and weakness. Psychiatric: Denies suicidal thoughts and substance abuse. Allergy/ Immunologic: Denies impaired immunity. Physical exam (Primary Care) Vital Signs: Last Vital Signs Pulse 66 11/06/23 08:05 BP 118/60 11/06/23 08:05 Pulse Ox 98 11/06/23 08:05 Oxygen Delivery Method Room Air 11/06/23 08:05 BMI result Body Mass Index 29.6 Tobacco/Smoking Status: Tobacco use Status Tobacco use date assessed 10/02/23 11/06/23 08:02 Patient Tobacco Use Status Never used Tobacco 11/06/23 08:02 e-Cigarette/Vaping Use Never Used 11/06/23 08:02 Thrive Assessment: Date of Thrive Assessment Date Thrive assessed 10/02/23 11/06/23 08:02 Const Other: General: Well developed, well nourished, in no acute distress. Appears stated age. Head: Normocephalic, atraumatic. Eyes: Pupils are equal, round and reactive to light and accommodation. Conjunctivae are clear. Vision grossly normal. Ears: TMs clear AU, EACS WNL Nose: Patent, without discharge. Mouth: There are no ulcers or lesions noted. No inflammation, no post nasal drip, no plaques nor exudates. Neck: Supple, no adenopathy or thyromegaly. Lungs: Clear to auscultation bilaterally. No rales, rhonchi or wheeze noted. Good air flow in all freedman. Heart: Regular rate and rhythm. No murmurs, click, rubs or gallops are noted. Abdomen: Bowel sounds present in all quadrants. The abdomen is soft, nontender, with no masses or organomegaly noted. No hernias are noted. Musculoskeletal: Joints are nontender, without swelling, redness, or effusions. Range of motion is observed to be normal. Pulses: Peripheral pulses are equal and palpable bilaterally. Extremities: No clubbing, cyanosis nor edema is noted. Neurologic: Gait and station normal. Cranial Nerves 2-12 intact. Motor strength grossly symmetrical and intact. No sensory loss. Balance normal. Skin: No rashes, ulcers, or lesions noted. Turgor is good. Skin color is good. Hair and nails are without abnormalities. Psych: Normal eye contact, affect and mood appropriate, and normal interactions. Patient is alert and appropriate to context. Assessment and Plan Assessment & Plan (1) Encounter for general adult medical examination without abnormal findings: Code(s): Z00.00 - Encounter for general adult medical examination without abnormal findings (2) Menopause: Comment: Refer to [facility] for management. Code(s): Z78.0 - Asymptomatic menopausal state (3) Laboratory exam ordered as part of routine general medical examination: Code(s): Z00.00 - Encounter for general adult medical examination without abnormal findings Orders: Orders Hemoglobin A1c Today Z00.00 - Encounter for general adult medical examination without abnormal findings Lipid Panel Today Z00.00 - Encounter for general adult medical examination without abnormal findings Vitamin D 25-OH Total Today Z00.00 - Encounter for general adult medical examination without abnormal findings XR DEXA axial skeleton Today Z78.0 - Asymptomatic menopausal state MM tomosynthesis screening BI Today Z12.31 - Encounter for screening mammogram for malignant neoplasm of breast Patient Instructions: Health screenings for women You should visit your health care provider from time to time, even if you are healthy. The purpose of these visits is to: Screen for medical issues Assess your risk for future medical problems Encourage a healthy lifestyle Update vaccinations and other preventive care services Help you get to know your provider in case of an illness Information Even if you feel fine, you should still see your provider for regular checkups. These visits can help you avoid problems in the future. For example, the only way to find out if you have high blood pressure is to have it checked regularly. High blood sugar and high cholesterol levels also may not have any symptoms in the early stages. A simple blood test can check for these conditions. There are specific times when you should see your provider or receive specific health screenings. The [place] Preventive Services Task Force publishes a list of recommended screenings. Below are screening guidelines for women ages 18 to 39. BLOOD PRESSURE SCREENING Your blood pressure should be checked at least once every 3 to 5 years if: Your blood pressure is in the normal range (top number less than 120 mm Hg and bottom number less than 80 mm Hg) You don't have risk factors for high blood pressure Ask your provider if you need your blood pressure checked more often if: The top number is 120 to 129 mm Hg or the bottom number is 70 to 79 mm Hg You have diabetes, heart disease, kidney problems, are overweight, or have certain other health conditions You have a first-degree relative with high blood pressure You are Black You had high blood pressure during a If the top number is 130 mm Hg or greater or the bottom number is 80 mm Hg or greater, this is considered stage 1 hypertension. Schedule an appointment with your provider to learn how you can reduce your blood pressure. Watch for blood pressure screenings in your area. Ask your provider if you can stop in to have your blood pressure checked. BREAST CANCER SCREENING Experts do not agree about the benefits of breast self-exams in finding breast cancer or saving lives. Talk to your provider about what is best for you. A screening mammogram is not recommended for most women under age 40. Your provider may discuss and recommend mammograms, MRI scans, or ultrasounds if you have an increased risk for breast cancer, such as: A mother or sister who had breast cancer at a young age (most often starting screening earlier than the age the close relative was diagnosed) You carry a high-risk genetic marker CERVICAL CANCER SCREENING Cervical cancer screening should start at age 21 years unless your provider advises otherwise. After the first test: Women ages 21 through 29 should have a Pap test every 3 years. Exoprts do not agree on whether HPV testing is recommended for this age group. Women ages 30 through 65 should be screened with either a Pap test every 3 years or the HPV test every 5 years or both tests every 5 years (called cotesting ). Women who have been treated for precancer (cervical dysplasia) should continue to have Pap tests for 20 years after treatment or until age 65, whichever is longer. If you have had your uterus and cervix removed (total hysterectomy), and you have not been diagnosed with cervical cancer or precancer (high grade cervical neoplasia), you do not need cervical cancer screening. CHOLESTEROL SCREENING Cholesterol screening should begin at: Age 45 for women with no known risk factors for coronary heart disease Age 20 for women with known risk factors for coronary heart disease Repeat cholesterol screening should take place: Every 5 years for women with normal cholesterol levels More often if changes occur in lifestyle (including weight gain and diet) More often if you have diabetes, heart disease, kidney problems, or certain other conditions DIABETES SCREENING You should be screened for diabetes starting at age 35 and then repeated every 3 years if you have no risk factors for diabetes. Screening may need to start earlier and be repeated more often if you have other risk factors for diabetes, such as: You have a first degree relative with diabetes. You are overweight or have obesity. You have high blood pressure, prediabetes, or a history of heart disease. Screening for diabetes should be done if you are planning to become and you are overweight and have other risk factors such as high blood pressure. DENTAL EXAM Go to the dentist once or twice every year for an exam and cleaning. Your dentist will evaluate if you need more frequent visits. EYE EXAM Have an eye exam every 5 to 10 years before age 40. If you have vision problems, have an eye exam every 2 years or more often if recommended by your provider. You should have an eye exam that includes an examination of your retina (back of your eye) at least every year if you have diabetes. IMMUNIZATIONS Commonly needed vaccines include: Flu shot: get one every year. COVID-19 vaccine: ask your provider what is best for you. Tetanus-diphtheria and acellular pertussis (Tdap) vaccine: have one at or after age 19 as one of your tetanus-diphtheria vaccines if you did not receive it as an adolescent. Tetanus-diphtheria: have a booster (or Tdap) every 10 years. Varicella vaccine: receive 2 doses if you never had chickenpox or the varicella vaccine. Hepatitis B vaccine: receive 2, 3, or 4 doses, depending on your exact circumstances. Measles, mumps, and rubella (MMR) vaccine: receive 1 to 2 doses if you are not already immune to MMR. Your provider can tell you if you are immune. Ask your provider about the human papillomavirus (HPV) vaccine if: You have not received the HPV vaccine in the past You have not completed the full vaccine series (you should catch up on this shot) Ask your provider if you should receive other immunizations if you have certain health problems that increase your risk for some diseases such as pneumonia. INFECTIOUS DISEASE SCREENING Women who are sexually active should be screened for chlamydia and gonorrhea up until age 25. Women 25 years and older should be screened for chlamydia and gonorrhea if at high risk. Screening for hepatitis C: All adults ages 18 to 79 should get a one-time test for hepatitis C. people should be screened at every . Screening for human immunodeficiency virus (HIV): All people ages 15 to 65 should get a one-time test for HIV. Depending on your lifestyle and medical history, you may also need to be screened for infections such as syphilis and HIV, as well as other infections. PHYSICAL EXAM All adults should visit their provider from time to time, even if they are healthy. The purpose of these visits is to: Screen for disease Assess your risk of future medical problems Encourage a healthy lifestyle Update your vaccinations and other preventive care services Maintain a relationship with a provider in case of an illness Your height, weight, and BMI should be checked at every exam. During your exam, your provider may ask you about: Depression and anxiety Diet and exercise Alcohol and tobacco use Safety issues, such as using seat belts, smoke detectors, and intimate partner violence Your medicines and risk for interactions SKIN SELF-EXAM Your provider may check your skin for signs of skin cancer, especially if you're at high risk, such as if you: Have had skin cancer before Have close relatives with skin cancer Have a weakened immune system OTHER SCREENING Talk with your provider about colon cancer screening if you have a strong family history of colon cancer or polyps, or if you have had inflammatory bowel disease or polyps yourself. Routine bone density screening of women under 40 is not recommended. Coding Level of Care Code Est Pt Prev Care 40-64y(08271) Diagnoses Encounter for general adult medical examination without abnormal findings Z00.00 Menopause Z78.0 Laboratory exam ordered as part of routine general medical examination Z00.00
[2023-11-06 08:05] VITALS: BP 118/60; PULSE 66; O2SAT 98; BMI 29.6
== END 2023-11-06 08:44 | disposition home or self-care (01) ==
PROVIDERS: PCP Nurse Practitioner Family; Visit Provider Nurse Practitioner Family
DX: Z00.00 Encounter for general adult medical examination without abnormal findings (principal); Z78.0 Asymptomatic menopausal state; Z23 Encounter for immunization
CPT/HCPCS: 90471; 90715; 99396

== ENCOUNTER 2023-11-06 09:00 | Outpatient (REF) | payer BC, SELFPAY ==
[2023-11-06 11:33] LABS: Estimated Average Glucose 103 mg/dL; Hemoglobin A1c % 5.2 % (<6.0)
[2023-11-06 11:43] LABS: Cholesterol 209 mg/dL (<200); HDL Cholesterol 59 mg/dL (>40); LDL Cholesterol Calculated 132 mg/dL (<100); Triglycerides 94 mg/dL (<150)
[2023-11-06 11:58] LABS: Vitamin D 25-OH Total 48.1 ng/mL (>30)
== END 2023-11-06 09:01 | disposition home or self-care (01) ==
LOC: HO.WFDLDS 09:00
PROVIDERS: Visit Provider Nurse Practitioner Family
DX: Z00.00 Encounter for general adult medical examination without abnormal findings (principal); Z13.1 Encounter for screening for diabetes mellitus; Z13.89 Encounter for screening for other disorder
CPT/HCPCS: 36415; 80061; 82306; 83036

== ENCOUNTER → 2023-12-04 08:30 | Outpatient (BNV) | payer BC, SELFPAY | PROVIDERS: PCP Nurse Practitioner Family; Visit Provider Radiology Diagnostic Radiology | DX: Z12.31 Encounter for screening mammogram for malignant neoplasm of breast (principal) | CPT/HCPCS: 77063; 77067 ==

== ENCOUNTER 2023-12-04 08:31 | Outpatient (REF) | payer BC, SELFPAY ==
--- NOTE | ~2023-12-04 | MM_ITS ---
EXAMINATION: MM SCREENING DIGITAL BREAST TOMOSYNTHESIS, BILATERAL CLINICAL INFORMATION: Screening. Asymptomatic. COMPARISON: Mammography: This study is compared with prior exams dating back to 2019. TECHNIQUE: Digital breast tomosynthesis is performed in both the craniocaudal and mediolateral oblique views along with computer-aided detection (CAD). Synthesized 2D images are generated from the tomosynthesis. FINDINGS: The breasts are heterogeneously dense, which may obscure small masses (ACR BI-RADS breast composition Category c). There are no significant masses, abnormal calcifications, or other abnormalities. There is a biopsy marker in the left breast. MM/MM tomosynthesis screening BI IMPRESSION: No mammographic evidence of malignancy. ASSESSMENT: BI-RADS BI-RADS 2 - Benign Findings RECOMMENDATION: Routine annual mammography screening. 1 year F/U This examination should not preclude the clinical evaluation of a suspicious palpable abnormality. This patient's information was entered into a reminder system with a target due date for their next mammogram. Electronically signed by: Rajwinder Richard MD 01/04/2024 11:22 PM EDT
--- NOTE | ~2023-12-04 | MM_ITS ---
EXAMINATION: BONE DENSITOMETRY CLINICAL INDICATION: Asymptomatic menopausal state. COMPARISON: This is the patient's baseline examination. TECHNIQUE: Using a [employer] DXA System (software version: 13.1) manufactured by [employer], dual-energy x-ray absorptiometry was performed of the lumbar spine and left hip. The images are of good technical quality. Summary results are attached. FINDINGS: LEFT FEMUR, NECK: BMD 1.041 g/cm2, Z-score 0.6, T-score 0.0, normal. LEFT FEMUR, TOTAL: BMD 1.112 g/cm2, Z-score 1.0, T-score 0.8, normal. AP SPINE L1-L4: BMD 1.409 g/cm2, Z-score 2.0, T-score 1.9, normal. IDENTIFIED RISK FACTORS: Low calcium intake, menopause, hysterectomy, current smoker. HISTORY OF FRACTURE: None listed. MEDICATIONS: None listed. MM/XR DEXA axial skeleton IMPRESSION: 1. DIAGNOSIS: Normal bone density based on the lowest T-score value of 0.0 in the femoral neck applying World Health Organization criteria. 2. 10-YEAR FRACTURE RISK PREDICTION, FRAX: According to the guidelines, FRAX calculation should only be performed on patients in the osteopenia bone density category. Therefore, FRAX was not performed on this patient. 3. Treatment Recommendations: NOF guidelines recommend consideration for treatment in postmenopausal women and men age 50 and older presenting with the following: -A hip or vertebral (clinical or morphometric) fracture. -T-score less than or equal to -2.5 at the femoral neck or spine after appropriate evaluation to exclude secondary causes. -Low bone mass at the hip or spine and a 10-year fracture probability by FRAX of greater than or equal to 3% for hip fracture or greater than or equal to 20% for major osteoporotic fracture based on the [place] adapted WHO algorithm. 4. Other Recommendations: All treatment decisions require clinical judgment and consideration of individual patient factors, including patient preferences, comorbidities, previous drug use, risk factors not captured in the FRAX model (e.g. frailty, falls, vitamin D deficiency, increased bone turnover, interval significant decline in bone density) and possible under or overestimation of fracture risk by FRAX. FUTURE SCAN RECOMMENDATION: People with diagnosed cases of osteoporosis or at high risk for fracture should have regular bone mineral density tests. For patients eligible for Medicare, routine testing is allowed once every 2 years. The testing frequency can be increased to one year for patients who have rapidly progressing disease, those who are receiving or discontinuing medical therapy to restore bone mass, or have additional risk factors.
== END 2023-12-04 08:32 | disposition home or self-care (01) ==
LOC: HO.MAMMO 08:31
PROVIDERS: PCP Nurse Practitioner Family; Visit Provider Nurse Practitioner Family
DX: Z12.31 Encounter for screening mammogram for malignant neoplasm of breast (principal); Z13.820 Encounter for screening for osteoporosis; Z78.0 Asymptomatic menopausal state
CPT/HCPCS: 77063; 77067; 77080

== ENCOUNTER 2024-01-29 11:39 | Outpatient (AMB) | payer BC, SELFPAY ==
[2024-01-29 11:42] VITALS: BP 138/72; PULSE 66; O2SAT 97; BMI 30.7
--- NOTE | 2024-01-29 11:42 | A.OFFVIS_ITS ---
Vital Signs 01/29/24 11:42 Height 5 ft 5 in Weight 184 lb 4.903 oz BMI 30.7 BP 138/72 Blood Pressure Location Rt brachial Position Sitting Pulse 66 Pulse Source Pulse Oximeter Pulse Oximetry (%) 97 Oxygen Delivery Method Room Air Intake Visit Reasons: Colonoscopy Screening Intake Note: Sulema presents in office today for a scheduled colo consult. CC; Pt does report having prior hx of IBS. Pt states that they have not had many issues or complications of this condition since having a hysterectomy (2019). Pt denies any previous hx of a colonoscopy. Pt reports having previously done a cologuard which was negative. Pt does report family hx of pancreatic, breast, and uterine cancers. Pt denies any family hx of colo specifically. Cyber Security Administrator Required: No Allergies Iodinated Contrast Media Allergy (Intermediate, Verified 01/29/24 11:53) tremors nitroglycerin Allergy (Intermediate, Verified 01/29/24 11:53) tremors penicillin V Allergy (Unknown, Verified 01/29/24 11:53) Anaphylaxis Sulfa (Sulfonamide Antibiotics) [SULFA (SULFONAMIDE ANTIBIOTICS)] Allergy (Unknown, Verified 01/29/24 11:53) ANAPHYLAXIS HPI HPI Colonoscopy Screening: Details: 53 year old? female with past medical history of migraine, menopause, PACs, hypertension is here today for pre colonoscopy screening.? Patient was sent to us by her PCP.? This is her first colonoscopy screening.? History of normal Cologuard in the past. Patient reports history of IBS, however symptoms resolved after her hysterectomy surgery in 2019. Patient denies any gastrointestinal symptoms in the past or at present.? Denies any personal or family history of gastrointestinal disease, colon polyps, or CRC.? Denies history of difficulty with sedation or anesthesia in the past.? Negative for history of sleep apnea, however patient was told that she has when she sleeps on her back.? Denies any history of cardiac, renal, pulmonary, or hepatic disease.?? No history of infectious? diseases like hepatitis A, B, C, HIV or tuberculosis.? Patient is not on any anticoagulation [facility] Medical History (Updated 01/29/24 @ 11:51 by SANDI Leon) Giant cell tumor (~12/2023) No known health problems Surgical History (Updated 01/29/24 @ 11:51 by SANDI Leon) H/O: hysterectomy (~02/2019) Family History Mother No problems noted. Father No problems noted. Social History Housing: House Alcohol intake: never Patient Tobacco Use Status: Never used Tobacco e-Cigarette/Vaping Use: Never Used Second Hand Smoke Exposure: Yes (past) Substance Use Type: Marijuana service: No Current occupational status: employed Current occupation: [employer] Current occupational exposures/hazards: No Cognitive needs: No Hearing needs: Yes (trouble hearing) Vision needs: No Female Reproductive History Menstrual Date of menopause: 05/05/17 Review of Systems Const Denies weight gain and Denies weight loss ENT Reports no additional complaints, Denies dysphagia and Denies odynophagia Card Reports no additional complaints Resp Reports no additional complaints GI Denies abdominal pain, Denies belching, Denies melena, Denies bloating, Denies change in bowel habits, Denies dysphagia, Denies excessive flatus, Denies dyspepsia, Denies heartburn, Denies diarrhea, Denies loose stools, Denies nausea, Denies odynophagia and Denies vomiting Musc Reports no additional complaints Neuro Reports no additional complaints Psych Reports no additional complaints Endo Reports no additional complaints Physical Exam Vital Signs: Last Vital Signs Pulse 66 01/29/24 11:42 BP 138/72 01/29/24 11:42 Pulse Ox 97 01/29/24 11:42 Oxygen Delivery Method Room Air 01/29/24 11:42 BMI result Body Mass Index 30.7 Const General: healthy appearing and no acute distress Nutritional Appearance: well nourished Orientation/consciousness: patient oriented x3 Resp Effort & Inspection: normal respiratory effort, able to speak in complete sentences, no tracheal deviation and symmetric chest movement Auscultation: clear to auscultation bilaterally Cardio Rate: regular rate GI Inspection: Yes normal to inspection and No distended Palpation (GI): Soft to palpation, not firm, nontender and No hepatosplenomegaly present Auscultation: normal bowel sounds General: Yes no CVA tenderness Back/Spine/Pelvis Back: no CVA tenderness Skin General skin exam: elasticity normal, turgor normal and dry skin Neuro General: patient oriented x3 Psych Appearance: grossly normal Mental Status: mental status grossly normal Assessment & Plan Assessment & Plan (1) Screen for colon cancer: Code(s): Z12.11 - Encounter for screening for malignant neoplasm of colon Category: Medical Plan Patient denies any GI, cardiac or respiratory symptoms.? Denies any issues with anesthesia in the past.? Denies any history of sleep apnea.? No history infectious diseases in the past or present.? Not on any anticoagulation thera py.? No family or personal history of colon cancer or polyps.? Patient denies melena, hematochezia, unintentional weight loss or ribbon like stools.? Discussed at length the pre-procedure,? prep, diet & medications as well as what to expect prior, during and after the procedure.?? Stressed the importance of good bowel prep.? Recommended the use of Vaseline or Calmoseptine OTC & baby wipes with bowel movements to promote comfort.? ?Patient verbalizes understanding and agrees to plan of care.? She was given the opportunity to ask questions and all questions answered.? We will see her after the procedure.? Medications: New bisacodyl (Dulcolax (bisacodyl)) take 4 tabs at noon the day before your colonoscopy 20 mg (4 x 5 mg) PO ONCE 1 day 4 tabs 0RF Z12.11 - Encounter for screening for malignant neoplasm of colon polyethylene glycol 3350 (Miralax) As directed by gastroenterology department at [facility] 238 grams PO ONCE 238 grams 0RF Z12.11 - Encounter for screening for malignant neoplasm of colon Coding Level of Care Code New Pt Level 3 (98497) Diagnoses Screen for colon cancer Z12.11 Time Spent (min) 40 Comment 30 minutes spent with patient and additional 10 minutes spent reviewing her records
== END 2024-01-29 13:02 | disposition home or self-care (01) ==
PROVIDERS: PCP Nurse Practitioner Family; Visit Provider Nurse Practitioner Family
DX: Z12.11 Encounter for screening for malignant neoplasm of colon (principal); Z01.818 Encounter for other preprocedural examination
CPT/HCPCS: S0285

== ENCOUNTER → 2024-01-29 11:39 | Outpatient (BNVA) | payer BC, SELFPAY | PROVIDERS: PCP Nurse Practitioner Family; Visit Provider Nurse Practitioner Family ==

== ENCOUNTER → 2024-04-01 14:43 | Outpatient (BNV) | payer BC, SELFPAY ==
--- NOTE | 2024-04-01 14:44 | MHC.OFFVIS ---
Intake Visit Reasons: Amb Documentation Allergies Iodinated Contrast Media Allergy (Intermediate, Verified 01/29/24 11:53) tremors nitroglycerin Allergy (Intermediate, Verified 01/29/24 11:53) tremors penicillin V Allergy (Unknown, Verified 01/29/24 11:53) Anaphylaxis Sulfa (Sulfonamide Antibiotics) [SULFA (SULFONAMIDE ANTIBIOTICS)] Allergy (Unknown, Verified 01/29/24 11:53) ANAPHYLAXIS HPI HPI Amb Documentation: Details: 53-year-old female with a history of hypertension premature atrial contractions calling in for testing positive for COVID-19 infection. Patient states recently had COVID-19 infection and on Thursday you 3 days ago patient has had congestion myalgia sore throat and cough tested today COVID-19 infection positive and was asking for antiviral. [facility] Medical History (Updated 04/01/24 @ 14:41 by Sea Ibanez MD) Giant cell tumor (~12/2023) No known health problems Surgical History (Updated 01/29/24 @ 11:51 by SANDI Leon) H/O: hysterectomy (~02/2019) Family History Mother No problems noted. Father No problems noted. Social History Housing: House Alcohol intake: never Patient Tobacco Use Status: Never used Tobacco e-Cigarette/Vaping Use: Never Used Second Hand Smoke Exposure: Yes (past) Substance Use Type: Marijuana service: No Current occupational status: employed Current occupation: [employer] Current occupational exposures/hazards: No Cognitive needs: No Hearing needs: Yes (trouble hearing) Vision needs: No Female Reproductive History Menstrual Date of menopause: 05/05/17 Telehealth Telehealth Telehealth Platform: Telephone Location of provider rendering services: practice address Location of patient: address on file Patient Identification confirmed using: Name, : Yes Telehealth method: voice only Patient verbally consented to treatment: Yes Patient verbally consented to billing insurance company: Yes Patient informed of any privacy concerns related to visit: Yes Minutes spent on Phone/Video with Pt.: 10 Assessment & Plan Assessment & Plan (1) COVID-19 virus infection: Comment: 04/01/2024 Code(s): U07.1 - COVID-19 Category: Medical Plan: Antiviral prescription sent. For the sore throat can take Cepacol lozenges, discussed about Delsym to help with dry cough so she can rest and advised to increase oral fluids. Patient also can take Tylenol for chills and fever. Coding Level of Care Code Tele Est Pt Level 3 (13279) Diagnoses COVID-19 virus infection U07.1
== END ==
PROVIDERS: PCP Nurse Practitioner Family; Visit Provider Internal Medicine
DX: U07.1 COVID-19 (principal)
CPT/HCPCS: 98966

== ENCOUNTER 2024-09-05 13:32 | Outpatient (AMB) | payer BC, SELFPAY ==
--- NOTE | 2024-09-05 13:43 | A.OFFPC_ITS ---
Vital Signs 09/05/24 13:49 Height 5 ft 5 in Weight 182 lb BMI 30.3 BP 132/78 Blood Pressure Location Lt brachial Position Sitting Respiration 13 Pulse 66 Pulse Source Pulse Oximeter Temp 97.5 F Temp Source Oral Pulse Oximetry (%) 98 Oxygen Delivery Method Room Air Intake Visit Reasons: sleep study issues Intake Note: Patient is requesting sleep study and patient c/o migraines in the middle of the night waking her up and vomiting [employer] Product Development Manager Required: No Allergies Iodinated Contrast Media Allergy (Intermediate, Verified 09/05/24 14:04) tremors nitroglycerin Allergy (Intermediate, Verified 09/05/24 14:04) tremors penicillin V Allergy (Unknown, Verified 09/05/24 14:04) Anaphylaxis Sulfa (Sulfonamide Antibiotics) [SULFA (SULFONAMIDE ANTIBIOTICS)] Allergy (Unknown, Verified 09/05/24 14:04) ANAPHYLAXIS Medication List - Last Reconciled 09/05/24 by Monica Salcido, COMPUTER SYSTEMS MANAGER- bisacodyl (Dulcolax (bisacodyl)) 20 mg (4 x 5 mg) PO ONCE 1 day polyethylene glycol 3350 (Miralax) 238 grams PO ONCE Tobacco use date assessed: 09/05/24 Dental Screening Dental Screen Date: 09/05/24 HPI HPI Comments History of Present Illness Details 53-year-old female with hypertension, PV Cs and PACs, migraine, palpitations, menopause (2017) s/p MARIAM d/t fibroids 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 Coronary CTA without any hemodynamically significant coronary disease. Calcium score is zero. Unremarkable thoracic aorta. DEXA has not had one, ordered today Mammo reports standing order and UTD however wants to est care @ [facility] therefore order placed today. Colon cologaurd done in the past; referred @ last visit PAP up-to-date Tdap 2023 History of Present Illness - The patient is a 53-year-old female pr esenting with sleep disorder concerns and potential hormonal imbalances. She reports episodes of sleep disturbance occurring between 1:30 and 3:00 AM over the past months, causing work absenteeism and occasional vomiting. - Complaints of unexplained episodes of daytime fatigue, despite sometimes experiencing a counterintuitive relief with minimal sleep. - has observed snoring and apnea , suggesting episodes of witnessed sleep apnea. - Reports perimenopausal symptoms with v isible aging changes, attributing weight gain to menopause, with a noted high pain tolerance. - Chronic migraines are addressed, with a history of migraines correlating with previous use of hormonal patches, causing her to question the etiology of her migraines. - Lack of hormonal testing has been a po int of frustration, considering the noticeable changes in her condition. - Previous migraine treatment with Botox noted improvement; however, other prescribed pharmacologic treatments have led to prolonged symptoms or adverse reactions. - Considering alternative management rita roaches, including functional medicine, due to dissatisfaction with current management and concern over hormonal impact on migraine frequency. Social History - Employment: Engages with work starting at 6:00 AM. Experiences episodes that require calling out of work due to symptoms. - Sleep: Regular sleep pattern affected, with attempts to sleep early by 9:30 PM and waking around 4:30 AM. Reports better feeling with minimal sleep. - Activity Level: Attempts to maintain a healthy lifestyle despite feeling migrainous symptoms and weight concerns. - Functional Status: Experiences functio nal limitations when migraines occur. - Nutritional Intake: Reports eating wel l and hydrating adequately. - dry skin patch near ear has been apply ing castor oil w no relief Review of Systems - Neurological: Reports frequent migrain es with episodes not resolving with typical medication. - Sleep: Reports disrupted sleep pattern , occasional vomiting during the night. - General: Reports experiencing skin margot nges and weight gain attributed to perimenopausal changes. - Musculoskeletal: Denies any specific j oint pain or problems aside from weight attributed to menopause. - Psychiatric: Reports feeling paranoid about sleep health and menopause-related symptoms. Physical Exam General: Well developed, well nourished, in no acute distress. Appears stated age. Head: Normocephalic, atraumatic. Eyes: Pupils are equal, round and reactive to light and accommodation. Conjunctivae are clear. Lungs: Clear to auscultation bilaterally. No rales, rhonchi or wheeze noted. Good air flow in all freedman. Heart: Regular rate and rhythm. No murmurs, click, rubs or gallops are noted. Neurologic: Gait and station normal. Cranial Nerves 2-12 intact. Motor strength grossly symmetrical and intact. No sensory loss. Balance normal. Skin: No ulcers, or lesions noted. Turgor is good. Skin color is good. Hair and nails are without abnormalities. Eczematous rash proximal to R ear Psych: Normal eye contact, affect and mood appropriate, and normal interactions. Patient is alert and appropriate to context. Discussion Notes During the visit, I discussed the concerns surrounding suspected sleep apnea and its potential contributions to nocturnal symptoms and overall fatigue. We discussed scheduling a home sleep study as a non-invasive initial assessment with respiratory therapy instruction, exploring the risk and benefits of undergoing such an assessment. Further discussions entailed the potential need for an in-lab sleep study if initial results were inconclusive. Concerns about hormonal imbalances were addressed, exploring potential sources such as functional medicine or revisiting past treatments like the use of hormonal patches that may have contributed to migraines. Neurology consultation was recommended with specific mention of Kendal Osborne for specialized assessment of migraines and related neurologic symptoms. I advised obtaining a printout of the referral for neurology to ensure proper follow-up with the recommended provider. Considering her previous efforts, we also discussed the feasibility of pursuing Botox treatment versus pharmaceutical medications for migraines, considering adverse effects experienced by the patient. Assessment and Plan 1. Sleep Disorder Evaluation for possible sleep apnea is planned by arranging a home sleep study, given the patient?s reported symptoms and ?s observations. Initial triage for further assessment will depend on these results, with telehealth used for review of findings and subsequent decision-making. 2. Chronic Migraine The patient is referred to a neurology specialist, Kendal Osborne, for targeted management of chronic migraine, recognizing that past treatments with Botox correlated with symptom relief. Explored alternatives weighed against adverse effects from pharmaceutical interventions. Eczema of ear, use otc cortisone 10 bid; stop using castor oil Patient Instructions - Follow up with the respiratory therapy department for home sleep study appointment and use instructions. - Await results from the home sleep stud y, and participate in the scheduled telehealth discussion to evaluate findings. - Obtain referral information and schedu le an appointment with Kendal Osborne for migraine management. - Consider consultation with functional medicine if interested in exploring hormonal testing and potential alternatives for symptom management. otc cortisone to ear my office will arrange telehealth fu to review results of sleep study once avail RTO sooner prn Consent Patient was informed and verbally consented to the use of an ambient scribe for clinic note documentation during this visit. Time spent 40 minutes [facility] Medical History (Updated 09/05/24 @ 20:22 by Monica Salcido [facility]) Giant cell tumor (~12/2023) No known health problems Surgical History (Updated 01/29/24 @ 11:51 by SANDI Leon) H/O: hysterectomy (~02/2019) Family History Mother No problems noted. Father No problems noted. Social History Housing: House Alcohol intake: never Patient Tobacco Use Status: Never used Tobacco e-Cigarette/Vaping Use: Never Used Second Hand Smoke Exposure: Yes (past) Substance Use Type: Marijuana service: No Current occupational status: employed Current occupation: [employer] Current occupational exposures/hazards: No Cognitive needs: No Hearing needs: Yes (trouble hearing) Vision needs: No Female Reproductive History Menstrual Date of menopause: 05/05/17 Questionnaire PHQ-9 Over the last 2 weeks, how often have you been bothered by any of the following problems? 1. Little interest or pleasure in doing things: not at all 2. Feeling down, depressed, or hopeless: not at all 3. Trouble falling or staying asleep, or sleeping too much: not at all 4. Feeling tired or having little energy: not at all 5. Poor appetite or overeating: not at all 6. Feeling bad about yourself - or that you are a failure or have let yourself or your family down: not at all 7. Trouble concentrating on things, such as reading the newspaper or watching television: not at all 8. Moving or speaking so slowly that other people could have noticed. Or the opposite - being so fidgety or restless that you have been moving around a lot more than usual: not at all 9. Thoughts that you would be better off or of hurting yourself in some way: not at all Total score: 0 Depression Screening Interpretation: Negative Depression Screening Done: Yes 17714 - PHQ-9 Billing: Yes Source: Developed by Drs. Hung Toth, DeaGerber Aleman and colleagues, with an educational robby from [employer]. Thrive Questionnaire Date Thrive assessed: 09/05/24 I am a: Patient What is your living situation today?: I have a steady place to live Within the past 12 months, did the food you bought not last and you didn't have the money to get more?: Never true Within the past 12 months, did you worry whether your food would run out before you got money to buy more?: Never true Do you have trouble paying for medicines?: No Do you have trouble getting transportation to medical appointments?: No Do you have trouble paying your heating and electricity bill?: No Do you have trouble taking care of your child, family member or friend?: No Do you have trouble with day-to-day activities such as bathing, preparing meals, shopping, managing finances, etc.?: No Are you currently unemployed and looking for a job?: No Are you interested in more education?: No Please select the resources that you would like help with: None Currently or been in a relationship where the following occur: No concerns reported THRIVE Score: 0 AUDIT C Alcohol Use Questionnaire (AUDIT-C) 1. How often do you have a drink containing alcohol?: Never 3. How often do you have six or more drinks on one occasion?: Never Total Score: 0 GRIFFIN-7 AMB Questionnaire GRIFFIN-7 Date GRIFFIN - 7 assessed: 09/05/24 Feeling nervous, anxious, or on edge: 0 = Not at all Not being able to stop or control worryin = Not at all Worrying too much about different things: 0 = Not at all Trouble relaxin = Several days Being so restless that it is hard to sit still: 0 = Not at all Becoming easily annoyed or irritable: 0 = Not at all Feeling afraid as if something awful might happen: 0 = Not at all Total GRIFFIN-7 score (0-4 normal; 5-9 mild; 10-14 moderate; 15-21 severe): 1 Source: Developed by Drs. Hung Toth, Gerber Britton and colleagues, with an educational robby from [employer]. GRIFFIN-7 Assessment Billing GRIFFIN-7 Assessment Tool: GRIFFIN-7 Assessment 55163 Physical exam (Primary Care) Vital Signs: Last Vital Signs Temp 97.5 F 09/05/24 13:49 Pulse 66 09/05/24 13:49 Resp 13 09/05/24 13:49 BP 132/78 09/05/24 13:49 Pulse Ox 98 09/05/24 13:49 Oxygen Delivery Method Room Air 09/05/24 13:49 BMI result Body Mass Index 30.3 BMI Assessment/Plan discussion: High BMI High, discussed plan: lifestyle Tobacco/Smoking Status: Tobacco use Status Tobacco use date assessed 09/05/24 09/05/24 13:45 Patient Tobacco Use Status Never used Tobacco 09/05/24 13:45 e-Cigarette/Vaping Use Never Used 09/05/24 13:45 PHQ-9: PHQ-9 Score PHQ-9: Total score 0 09/05/24 14:18 Depression Screening Interpretation: Negative Thrive Assessment: Date of Thrive Assessment Date Thrive assessed 09/05/24 09/05/24 13:45 Currently or been in a relationship where the following occur: No concerns reported Coding Level of Care Code Est Pt Level 5 (68097) Complex EM visit Add On G2211 Diagnoses Migraine with aura and without status migrainosus, not intractable G43.109 Intractability: not intractable Status migrainosus presence: without status migrainosus Menopause Z78.0 Witnessed episode of apnea R06.81 Other eczema L30.8 Eczema type: other Obesity (BMI 30-39.9) E66.9 Additional Codes GRIFFIN-7 Assessment Billing - GRIFFIN-7 Assessment Tool: GRIFFIN-7 Assessment 96373 ([id number]) PHQ-9 - 45467 - PHQ-9 Billing: Yes ([id number]) Assessment & Plan Assessment & Plan (1) Migraine with aura: Code(s): G43.109 - Migraine with aura, not intractable, without status migrainosus Category: Medical Qualifiers: Intractability: not intractable Status migrainosus presence: without status migrainosus Qualified Code(s): G43.109 - Migraine with aura, not intractable, without status migrainosus (2) Menopause: Comment: Referred in the past to [facility] for management. Code(s): Z78.0 - Asymptomatic menopausal state Category: Medical (3) Witnessed episode of apnea: Code(s): R06.81 - Apnea, not elsewhere classified Category: Medical (4) Eczema: Code(s): L30.9 - Dermatitis, unspecified Category: Medical Qualifiers: Eczema type: other Qualified Code(s): L30.8 - Other specified dermatitis (5) Obesity (BMI 30-39.9): Code(s): E66.9 - Obesity, unspecified Category: Medical Plan . Orders: Orders RT home sleep study Today R06.83 - Snoring Referrals Neurology Referral G43.109 - Migraine with aura, not intractable, without status migrainosus
[2024-09-05 13:49] VITALS: BP 132/78; PULSE 66; RESP 13; TEMP 36.4; O2SAT 98; BMI 30.3
--- OUTSIDE RECORDS SUMMARY | 2024-09-05 14:58 | XMS_ITS | Encounter Summary ---
Author Organization [facility] Address [address] [place] [address] Care Team Providers Care Electric Organ Inspector And Repairer Name Role Phone System, Provider Not In Primary Care Provider Un available Encounter Details Date Type Department Care Team (Late st Contact Info) Description 07/29/2023 Scanned Document [address] [place] [address] [id number] Radiology, Scan Social History Tobacco Use Types Packs/Day Years Used Date Smoking Tobacco: Never Assessed Comments Unknown Sex and Gender Information Value Date Recorded Sex Assigned at Female 07/03/2023 3:05 PM EST Legal Sex Female 4:29 PM EST Gender Identity Female 07/03/2023 3:05 PM EST Sexual Orientation Heterosexual (straight) 07/02 3:05 PM EST documented as of this encounter Plan of Treatment Not on file documented as of this encounter Procedures Procedure Name Priority Date/Time Associated Diagnosis Comments HX OUTSIDE ORDER 07/29/2023 documented in this encounter Results * HX OUTSIDE ORDER (07/29/2023) us Scan Radiology HX AMB PROCEDURES Final Result documented in this encounter Visit Diagnoses Not on filedocumented in this encounter Care Teams Electric Organ Inspector And Repairer Relationship Specialty Start Date End Date System, Provider Not In PCP - General 07/03/23 documented as of this encounter
--- OUTSIDE RECORDS SUMMARY | 2024-09-05 14:58 | XMS_ITS | Encounter Summary ---
Author Organization [facility] Address [address] [place] [address] Care Team Providers Care Salon Professional Name Role Phone System, Provider Not In Primary Care Provider Un available Encounter Details Date Type Department Care Team (Late st Contact Info) Description 07/24/2023 Scanned Document [address] [place] [address] [phone] Radiology, Scan Social History Tobacco Use Types [...] Procedure Name Priority Date/Time Associated Diagnosis Comments LAB RESULT 07/24/2023 documented in this encounter Results * LAB RESULT (07/24/2023) us Scan Radiology HX AMB PROCEDURES Final Result documented in this encounter Visit Diagnoses Not on filedocumented in this encounter Care Teams Salon Professional Relationship Specialty Start Date End Date System, Provider Not In PCP - General 07/03/23 documented as of this encounter
--- OUTSIDE RECORDS SUMMARY | 2024-09-05 14:58 | XMS_ITS | Clinical Summary ---
Author Organization [facility] Address [address] [place] [address] Care Team Providers Care Entertainment Centre Manager Name Role Phone System, Provider Not In Primary Care Provider Un available Allergies Active Allergy Reactions Criticality Noted Date Comments Iodinated Contrast Media Other (See Comments) Low 07/29/2023 Uncontrollable shivering after scan---pt given benadryl as a precaution. Penicillins Anaphylaxis High 10/19/2017 Sulfa Antibiotics Hives Medium 10/19/2017 Medications No known medications Social History Tobacco Use Types Packs/Day Years Used Date Smoking Tobacco: Never Assessed Comments Unknown Sex and Gender Information Value Date Recorded Sex Assigned at Female 07/03/2023 3:05 PM EST Legal Sex Female 4:29 PM EST Gender Identity Female 07/03/2023 3:05 PM EST Sexual Orientation Heterosexual (straight) 07/02 3:05 PM EST Last Filed Vital Signs Vital Sign Reading Time Taken Comments Blood Pressure 155/92 07/29/2023 8:45 AM EDT Pulse 59 07/29/2023 8:45 AM EDT Temperature - - Respiratory Rate 18 07/29/2023 8:45 AM EDT Oxygen Saturation 98% 07/29/2023 8:45 AM EDT Inhaled Oxygen Concentration - - Weight - - Height - - Body Mass Index - - Plan of Treatment Health Maintenance Due Date Last Done Comments Hepatitis C Virus Screening 1970 HIV Screening 11/18/1983 DTaP/Tdap/Td Vaccines (1 - Tdap) 1989 Hepatitis B Vaccines (1 of 3 - 19+ 3-dose series) 11/01 Pap Smear (Ages 21-65) 11/18/1991 Mammogram 2010 Colonoscopy 11/18/2015 Pneumococcal Vaccines 50+ (1 of 1 - PCV) 2020 Zoster (Shingles) Vaccine (1 of 2) 2020 Influenza Vaccine 12/03/2023 05/03/2018 COVID-19 Vaccine (1 - 2023- season) 2024 Insurance Care Teams Entertainment Centre Manager Relationship Specialty Start Date End Date System, Provider Not In PCP - General 07/03/23
--- OUTSIDE RECORDS SUMMARY | 2024-09-05 14:58 | XMS_ITS ---
Author Name [facility] Organization Unknown History of Medication Use Medication Directions Dispensed Refills Start Date End Date Stat us sodium chloride 0.9 % (NS) bolus 500 mL, Intravenous, Administer over 0.5 Hours, Once, On Thu07/29/23 at 0830, For 1 dose 07/29/2023 07/29/2023 completed iohexol (OMNIPAQUE) 350 mg/mL injection 80 mL 80 mL, Intravenous, Once in imaging, contrast, Starting on Thu07/29/23 at 0840, For 1 dose, Radiology Appointment 07/29/2023 07/29/2023 completed Problems Problem Status Onset Date Problem Type Date of Resolution Source PVC (premature ventricular contraction) active EncounterDiagnosisAct HHCCT 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, unspecified whether [place] or transplanted heart (HCC) active EncounterDiagnosisAct CCT Encounters Encounter Type Encounter Reason Primary Diagnosis Location Date Ambulatory Atherosclerotic hear t disease of [place] coronary artery with unstable angina pectoris Atherosclerotic heart disease of [place] coronary artery with unstable angina pectoris [facility] 07/29/2023 Care Team Organization Name Specialty Phone Email Start Date End Da te [facility] System Supervisor Dry Cell Assembly 07/29/2023 07/20/2024 [facility] PROVIDER SYSTEM Primary Care 07/03/2023
== END 2024-09-05 14:25 | disposition home or self-care (01) ==
LOC: HO.HMCFM 13:33
PROVIDERS: PCP Nurse Practitioner Family; Visit Provider Nurse Practitioner Family
DX: G43.109 Migraine with aura, not intractable, without status migrainosus (principal); Z78.0 Asymptomatic menopausal state; E66.9 Obesity, unspecified; Z68.30 Body mass index [BMI] 30.0-30.9, adult; R06.81 Apnea, not elsewhere classified; L30.8 Other specified dermatitis

== ENCOUNTER → 2024-09-05 13:32 | Outpatient (BNVA) | payer BC, SELFPAY | PROVIDERS: PCP Nurse Practitioner Family; Visit Provider Nurse Practitioner Family | DX: G43.109 Migraine with aura, not intractable, without status migrainosus (principal); R06.81 Apnea, not elsewhere classified; L30.8 Other specified dermatitis; E66.9 Obesity, unspecified; Z68.30 Body mass index [BMI] 30.0-30.9, adult; Z78.0 Asymptomatic menopausal state | CPT/HCPCS: 96127 ==

== ENCOUNTER 2025-04-26 13:05 | Outpatient (AMB) | payer BC, SELFPAY ==
--- NOTE | 2025-04-26 13:07 | A.OFFPC_ITS ---
Vital Signs 04/26/25 13:16 Height 5 ft 5 in Weight 190 lb 4 oz BMI 31.7 BP 135/85 Blood Pressure Location Lt brachial Position Sitting Respiration 16 Pulse 72 Pulse Source Pulse Oximeter Temp 97.8 F Temp Source Oral Pulse Oximetry (%) 98 Oxygen Delivery Method Room Air Intake Visit Reasons: blood sugar check Intake Note: patient here for blood sugar check Director Product Management Required: No Is last menstrual period known: No Post menopausal: No Patient : No Allergies Iodinated Contrast Media Allergy (Intermediate, Verified 04/26/25 13:30) tremors nitroglycerin Allergy (Intermediate, Verified 04/26/25 13:30) tremors penicillin V Allergy (Unknown, Verified 04/26/25 13:30) Anaphylaxis Sulfa (Sulfonamide Antibiotics) (SULFA (SULFONAMIDE ANTIBIOTICS)) Allergy (Unknown, Verified 04/26/25 13:30) ANAPHYLAXIS Medication List - Last Reconciled 04/26/25 by Monica Salcido, [facility]- bisacodyl (Dulcolax (bisacodyl)) 20 mg (4 x 5 mg) PO ONCE 1 day polyethylene glycol 3350 (Miralax) 238 grams PO ONCE Tobacco use date assessed: 04/26/25 Dental Screening Dental Screen Date: 04/26/25 Did you have a dental visit in the last 12 months?: Yes Did you have a dental problem in the last 6 months where you did not have access to dental care?: No Was dental information given to patient?: Patient has dentist HPI HPI Comments History of Present Illness Details 54-year-old female with hypertension, PV Cs and PACs, migraine, palpitations, menopause (2017) s/p MARIAM d/t fibroids Specialist Cardiology [facility] maintenance 08/2023: Echocardiogram with LVEF of 60-6 5%; normal peak global longitudinal strain; otherwise unremarkable.In the Holter, underlying rhythm is sinus with rare PACs/PVCs. Coronary CTA without any hemodynamically significant coronary disease. Calcium score is zero. Unremarkable thoracic aorta. DEXA has not had one, ordered today Mammo reports standing order and UTD however wants to est care @ [facility] therefore order placed today. Colon cologaurd done in the past; referred @ last visit PAP up-to-date Tdap 2023 History of Present Illness The patient is a 54 year old female presenting for diabetes screening and management of menopausal symptoms. Perimenopausal disorder: - The patient reports experiencing menop ausal symptoms, including hot flashes, uncontrolled weight gain, hip pain, past heart palpitations, and urinary frequency. - She has struggled with scheduling an a ppointment with a GIN FEEDER specialist. - The patient expresses frustration over weight gain despite a period of significant walking, up to 17 miles a day, and normal eating habits while on vacation. - She previously used an estrogen patch but was advised to stop taking it due to ongoing migraines. Chronic Migraine: - The patient has a history of chronic m igraines, stating she has them all day long, every day. - She has received Botox injections for TMJ, which helped jaw pain but did not alleviate the migraines. - She reports taking a lot of Tylenol an d Motrin for the migraines. - She previously tried Tramadol, which w as discontinued due to stomach upset and its effect of causing a prolonged, low-level migraine. - A neurologist had previously dismissed her symptoms as being related to stress. - She also tried another medication that was supposed to help with weight loss but could not tolerate it due to stomach issues. Screening for diabetes mellitus: - The patient presented with a request t o be screened for diabetes. - Bbrhx-dv-etkx testing was performed, w ith a hemoglobin A1c of 5.4% and a [facility] [place]note 2] glucose of 104, despite her having eaten pizza prior to the visit. - The results are within the normal rang e, ruling out diabetes. Past Medical History - Chronic migraines - Temporomandibular joint (TMJ) disorder , treated with Botox. - History of heart palpitations - Past use of estrogen patch, discontinu ed due to migraines. - Past trial of Tramadol for migraines, discontinued due to side effects. Review of Systems - GENERAL: Reports hot flashes and uncon trolled weight gain. - NEUROLOGICAL: Reports chronic daily mi graines. - GASTROINTESTINAL: Reports heartburn. - GENITOURINARY: Reports urinary frequen cy. - MUSCULOSKELETAL: Reports severe hip pa in without injury and neck pain. Reports jaw pain associated with TMJ. - CARDIOVASCULAR: Reports a history of h eart palpitations. - PSYCHIATRIC: Reports feeling miserable , frustrated, and dysregulated. Physical Exam General: Well developed, well nourished, in no acute distress. Appears stated age. Head: Normocephalic, atraumatic. Eyes: Pupils are equal, round and reactive to light and accommodation. Conjunctivae are clear. Lungs: Speaking in full sentences. Psych: Mood and affect appropriate Results - Labs: - Hemoglobin A1c: 5.4% - Random glucose: 104 mg/dL Medical Decision Making The patient is a 54-year-old female who presented for diabetes screening, but her primary concerns are related to menopausal symptoms, including hot flashes, uncontrolled weight gain, and chronic migraines. Her lrjlc-pq-ezot A1c and random glucose were normal, ruling out diabetes as a cause for her symptoms. The patient's symptoms are highly suggestive of menopause, which is likely also exacerbating her chronic migraines. She has been frustrated by her inability to schedule a timely appointment with a GIN FEEDER specialist for comprehensive hormone management. My approach is to initiate treatment to provide symptomatic relief in the interim. For her vasomotor symptoms (hot flashes), I have recommended Veozah, a non-hormonal option, and have advised her of the need for liver enzyme monitoring if she chooses to start it. For her genitourinary symptoms, I am starting her on vaginal estradiol cream, which is the safest form of estrogen and will primarily provide local relief. For her chronic migraines, given her intolerance to previous agents like tramadol and her frequent use of NSAIDs/Tylenol, I am prescribing Nurtec to be used as a preventative agent every other day. I have strongly advised against pursuing weight loss injections from med spas due to the risks and the need for lifelong use, framing the weight gain as a symptom of her underlying hormonal imbalance that needs to be addressed. The patient has been counseled to secure a GIN FEEDER appointment for long-term management, and we will follow up in 8-12 weeks to assess her response to this initial regimen. Plan 1. menopausal Disorder - Prescribed Veozah (fezolinetant) for h ot flashes; the patient was advised that this medication requires monitoring of liver enzymes via blood work if she decides to take it. - Prescribed vaginal estradiol cream for genitourinary symptoms; the patient was instructed to apply it daily for two weeks, then twice a week thereafter. - The patient was strongly encouraged to call and schedule an appointment with a GIN FEEDER specialist for comprehensive hormone therapy management. 2. Chronic Migraine - Prescribed Nurtec (rimegepant) for reilly erica management. - The patient was instructed to take it every other day as a preventative therapy. - The goal is to reduce the frequency an d severity of her headaches, as it is believed they are connected to hormonal fluctuations. 3. Screening For Diabetes Mellitus - The patient was reassured that her A1c of 5.4% and random glucose of 104 mg/dL are normal and she does not have diabetes. - No further workup for diabetes is arely cated at this time. 4. Follow-Up - The patient was advised to return for a follow-up visit in 8 to 12 weeks to assess her response to the new medications. Patient Instructions - Your blood tests for diabetes were nor mal. You do not have diabetes. - I have sent three new prescriptions to your pharmacy. You can look them up and decide if you want to take them. - For hot flashes, you can take Veozah. If you decide to take this medication, you will need to have blood work done in a few weeks to check your liver. - For migraines, start taking Nurtec. Ta ke one tablet every other day to help prevent your headaches. - For vaginal symptoms, use the estradio l cream. Apply a small amount inside the vagina every day for 2 weeks, and then use it only twice a week after that. - All new medications can be taken with or without food, depending on what feels best for your stomach. - Please call a women's health specialis t (GIN FEEDER) to make an appointment for your hormone-related issues, even if the appointment is several months from now. - Please schedule a follow-up visit with me in 8 to 12 weeks to check on how you are feeling with the new treatments. Consent The risks, benefits, and alternatives of initiating Veozah, vaginal estradiol cream, and Nurtec were discussed with the patient. Specifically, the need for liver enzyme monitoring with Veozah was reviewed. The patient provided verbal consent to send the prescriptions to her pharmacy, with the understanding that she would review the information and decide whether to fill and start the medications. Patient was informed and verbally consented to the use of an ambient scribe for clinic note documentation during this visit. Total time spent caring for the patient today was 40 minutes. This includes time spent before the visit reviewing the chart, time spent during the visit, and time spent after the visit on documentation, reviewing laboratory results, diagnostic imaging, medications, performing a medically necessary evaluation, counseling on diagnoses, care coordination, ordering appropriate tests, ordering appropriate medications, review of tests performed by other providers, reporting test results with the patient, communication with other healthcare providers. 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 Father No problems noted. Social History Housing: House Alcohol intake: never Patient Tobacco Use Status: Never used Tobacco e-Cigarette/Vaping Use: Never Used Second Hand Smoke Exposure: Yes (past) Substance Use Type: Marijuana service: No Current occupational status: employed Current occupation: [employer] Current occupational exposures/hazards: No Cognitive needs: No Hearing needs: Yes (trouble hearing) Vision needs: No Female Reproductive History Menstrual Date of menopause: 05/05/17 Questionnaire Thrive Questionnaire Date Thrive assessed: 09/02/24 I am a: Patient What is your living situation today?: I have a steady place to live Within the past 12 months, did the food you bought not last and you didn't have the money to get more?: Never true Within the past 12 months, did you worry whether your food would run out before you got money to buy more?: Never true Do you have trouble paying for medicines?: No Do you have trouble getting transportation to medical appointments?: No Do you have trouble paying your heating and electricity bill?: No Do you have trouble taking care of your child, family member or friend?: No Do you have trouble with day-to-day activities such as bathing, preparing meals, shopping, managing finances, etc.?: No Are you currently unemployed and looking for a job?: No Are you interested in more education?: No Currently or been in a relationship where the following occur: No concerns reported THRIVE Score: 0 GRIFFIN-7 AMB Questionnaire GRIFFIN-7 Date GRIFFIN - 7 assessed: 09/05/24 Source: Developed by DrsFarhad Toth, Dea Licona, Gerber Espinosa and colleagues, with an educational robby from [employer]. Physical exam (Primary Care) Vital Signs: Last Vital Signs Temp 97.8 F 04/26/25 13:16 Pulse 72 04/26/25 13:16 Resp 16 04/26/25 13:16 BP 135/85 04/26/25 13:16 Pulse Ox 98 04/26/25 13:16 Oxygen Delivery Method Room Air 04/26/25 13:16 BMI result Body Mass Index 31.7 Tobacco/Smoking Status: Tobacco use Status Tobacco use date assessed 04/26/25 04/26/25 13:21 Patient Tobacco Use Status Never used Tobacco 04/26/25 13:09 e-Cigarette/Vaping Use Never Used 04/26/25 13:09 Thrive Assessment: Date of Thrive Assessment Date Thrive assessed 09/02/24 04/26/25 13:09 Currently or been in a relationship where the following occur: No concerns reported Results AMB Hemoglobin A1c AMB Hemoglobin A1c 5.4 % Last Edit by WALLY Braxton on 04/26/25 13:34 AMB Random Glucose (hemocue) AMB Random Glucose (hemocue) 109 mg/dL Last Edit by WALLY Braxton on 04/26/25 13:36 Results Reviewed Results Reviewed: Laboratory Last Values Random Glu (Clinic) 109 mg/dL 04/26/25 13:21 Hgb A1c (Clinic) 5.4 % (4.0-6.0) 04/26/25 13:21 Coding Level of Care Code Est Pt Level 5 (31370) Add On Problem Visit Only Diagnoses Menopause Z78.0 Vasomotor symptoms due to menopause N95.1 Migraine with aura and without status migrainosus, not intractable G43.109 Status migrainosus presence: without status migrainosus Intractability: not intractable Assessment & Plan Assessment & Plan (1) Menopause: Code(s): Z78.0 - Asymptomatic menopausal state Category: Medical (2) Vasomotor symptoms due to menopause: Code(s): N95.1 - Menopausal and female climacteric states Category: Medical (3) Migraine with aura: Code(s): G43.109 - Migraine with aura, not intractable, without status migrainosus Category: Medical Qualifiers: Status migrainosus presence: without status migrainosus Intractability: not intractable Qualified Code(s): G43.109 - Migraine with aura, not intractable, without status migrainosus Plan . Orders: Orders AMB Random Glucose (hemocue) Today Z13.9 - Encounter for screening, unspecified AMB Hemoglobin A1c Today Z13.9 - Encounter for screening, unspecified AMB Fasting Glucose Today Z13.9 - Encounter for screening, unspecified Liver Panel Today Z78.0 - Asymptomatic menopausal state Medications: New rimegepant (Nurtec ODT) 75 mg PO Q OTHER DAY 15 tabs 0RF 30 days fezolinetant (Veozah) 45 mg PO DAILY 90 tabs 0RF estradiol 0.01%(0.1mg/gram) (Estrace) use daily x 2 weeks then twice per week 1 g vaginal 2XW 42.5 grams 1RF
--- OUTSIDE RECORDS SUMMARY | 2025-04-26 13:08 | XMS_ITS | Encounter Summary ---
Author Organization [facility] Address [address] [place] [address] Care Team Providers Care System Specialist Name Role Phone System, Provider Not In Primary Care Provider Un available Encounter Details Date Type Department Care Team (Late st Contact Info) Description 07/29/2023 Scanned Document [address] [place] [address] [phone] Radiology, Scan Social History Tobacco Use Types [...] on filedocumented in this encounter Care Teams System Specialist Relationship Specialty Start Date End Date System, Provider Not In PCP - General 07/03/23 documented as of this encounter
--- OUTSIDE RECORDS SUMMARY | 2025-04-26 13:08 | XMS_ITS | Clinical Summary ---
Author Organization [facility] Address [address] [place] [address] Care Team Providers Care Technical Spec Name Role Phone System, Provider Not In [...] Vaccine (1 of 2) 2020 Influenza Vaccine 12/02/2024 05/03/2018 COVID-19 Vaccine (1 - 2024- season) 2025 RSV Vaccine 50 years and old er and Patients (1 - 1-dose 75+ series) 2045 Insurance Care Teams Technical Spec Relationship Specialty Start Date End Date System, Provider Not In PCP - General 07/03/23
--- OUTSIDE RECORDS SUMMARY | 2025-04-26 13:09 | XMS_ITS | Encounter Summary ---
Author Organization [facility] Address [address] [place] [address] Care Team Providers Care Referral Nurse Name Role Phone System, Provider Not In Primary Care Provider Un available Encounter Details Date Type Department Care Team (Late st Contact Info) Description 07/24/2023 Scanned Document [address] [place] [address] [phone] Radiology, Scan Social History Tobacco Use Types [...] on filedocumented in this encounter Care Teams Referral Nurse Relationship Specialty Start Date End Date System, Provider Not In PCP - General 07/03/23 documented as of this encounter
--- OUTSIDE RECORDS SUMMARY | 2025-04-26 13:09 | XMS_ITS | Patient Health Record ---
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 Problems Problem Type SNOMED Code ICD Code Onset Dates Problem Status W/U Status Risk Notes Problem Chronic pain (84186719) Other chronic pain (G89.29) Active confirmed Problem Hyperlipidemia (91663997) Hyperlipidemia, unspecified (E78.5) Active confirmed Problem Hyperlipoproteinemia (3799719) Acquired hyperlipoproteinemia (E78.5) Active confirmed Problem Vitamin D deficiency (80801034) Vitamin D deficiency (E55.9) Active confirmed Problem Accelerated essentia l hypertension (49952917) Accelerated essential hypertension (I10) Active confirmed Plan Of Treatment Pending Test Test Name Order Date X ray : Spines, lumbosacral 03/18/2021 Cologuard 06/05/2021 LIPID PANEL, STANDARD 06/05/2021 COMPREHENSIVE METABOLIC PANEL 06/05/2021 Insurance Providers Payer Name Payer Address Payer Phone Subscriber Number Group Number Insured Name Patient Relationship to Insured Coverage Start Date Coverage End Date [facility] [address] [facility] [place] [phone] [id number] NITZA MOORE Self - patient is the insured Medications Administered Medication Instructions Date of Administration Dosage Notes MICC B12 INJECTION 04/12/2021 lot # [id number] MICC B12 INJECTION 06/05/2021 MICC B12 INJECTION 06/27/2021 vitamin b12 04/18/2021 1 mL Medical (General) History Medical History History ICD Code excema prediabetes Surgical History Surgery Date(Month/Year) hysterectomy 2018
--- OUTSIDE RECORDS SUMMARY | 2025-04-26 13:09 | XMS_ITS ---
Author Name [facility] Organization Unknown History of Medication Use Medication Directions Dispensed Refills Start Date End Date Stat us sodium chloride 0.9 % (NS) bolus 500 mL, Intravenous, Administer over 0.5 Hours, Once, On Thu07/29/23 at 0830, For 1 dose 07/29/2023 4 completed diphenhydrAMINE (BENADRYL) injection 25 mg 25 mg, Intravenous, Once, On Thu07/29/23 at 0930, For 1 dose, If ordered IV push, inject at a rate of 25 mg/minute or LESS. 07/29/2023 4 completed iohexol (OMNIPAQUE) 350 mg/mL injection 80 mL 80 mL, Intravenous, Once in imaging, contrast, Starting on Thu07/29/23 at 0840, For 1 dose, Radiology Appointment 07/29/2023 4 completed nitroglycerin (NITROSTAT) SL tablet 0.4 mg 0.4 mg, Sublingual, Once, On Thu07/29/23 at 0800, For 1 dose, Please give in the CT scanner room as part of the cardiac CTA procedure. Do not chew, crush, or swallow sublingual tablet. Place under tongue and allow to dissolve. Alternately, may be placed in the buccal pouch. 07/29/2023 4 completed No known medications No known medications active Allergies Allergen Reaction Severity Comment Documented Date Source Status IODINATED CONTRAST MEDIA OTHER (SEE COMMENTS) Uncontrollable shivering after scan---pt given benadryl as a precaution. 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 PROVIDER SYSTEM Primary Care 07/03/2023
[2025-04-26 13:16] VITALS: BP 135/85; PULSE 72; RESP 16; TEMP 36.6; O2SAT 98; BMI 31.7
== END 2025-04-26 14:08 | disposition home or self-care (01) ==
LOC: HO.HMCFM 13:06
PROVIDERS: PCP Nurse Practitioner Family; Visit Provider Nurse Practitioner Family
DX: G43.109 Migraine with aura, not intractable, without status migrainosus (principal); N95.1 Menopausal and female climacteric states; Z13.9 Encounter for screening, unspecified

== ENCOUNTER → 2025-04-26 13:05 | Outpatient (BNVA) | payer BC, SELFPAY | PROVIDERS: PCP Nurse Practitioner Family; Visit Provider Nurse Practitioner Family | DX: G43.109 Migraine with aura, not intractable, without status migrainosus (principal); N95.1 Menopausal and female climacteric states; Z79.899 Other long term (current) drug therapy | CPT/HCPCS: 82948; 83036 ==